=== PATIENT | female | born 1965 | race Caucasian/White ===

== ENCOUNTER → 2016-10-25 | Outpatient (CLI) | payer BC ==
[~2016-10-25] MED LIST: CALC-51 PO; DICY10CA55 PO; VITAMIN B12 PO; VITAMIN D3 PO
--- NOTE | 2016-10-25 14:05 | DIAGNOSTIC IMAGING REPORT ---
ABDOMEN AND PELVIS CT WITH IV AND ORAL CONTRAST CT DOSE: 805.97 mGycm HISTORY: Pain. Nausea. ABDOMINAL PAIN, BLOATING , CRAMPING TECHNIQUE: Multiaxial CT images of the abdomen and pelvis were performed following the use of intravenous and oral contrast. COMPARISON STUDY: 02/23/2013 FINDINGS: Minimal dependent basilar atelectatic change. Liver enhances uniformly. Spleen pancreas are unremarkable. Kidneys negative for mass or hydronephrosis. Bowel pattern is nonobstructive. Bladder is midline. There is no free fluid within the pelvic cul-de-sac. The appendix is normal. There are several very small reactive mesenteric nodes. IMPRESSION: No acute process. Electronically signed by: Jose Romero M.D. 10/25/2016 2:04 PM Dictated Date/Time: 10/25/2016 1:58 PM
== END | disposition home or self-care (01) ==
LOC: C.CTS 11:43
PROVIDERS: ATTEND Physician Assistant Medical
DX: K58.9 Irritable bowel syndrome, unspecified (principal); R14.0 Abdominal distension (gaseous); R10.9 Unspecified abdominal pain

== ENCOUNTER → 2017-02-11 | Outpatient (CLI) | payer BC ==
--- NOTE | 2017-02-11 17:59 | DIAGNOSTIC IMAGING REPORT ---
KUB HISTORY: Nephrolithiasis. COMPARISON: Abdomen and pelvis CT 10/25/2016. KUB 09/06/2015. FINDINGS: The bowel gas pattern is unremarkable. There are no dilated loops of small bowel to suggest an obstruction. No renal calculi. No ureteral calculi. Calcifications in the deep pelvis likely represent phleboliths. These remain stable. No pneumoperitoneum or pneumatosis. IMPRESSION: No renal or ureteral stones. Electronically signed by: Patricio Naik M.D. 02/11/2017 5:58 PM Dictated Date/Time: 02/11/2017 5:56 PM
== END | disposition home or self-care (01) ==
LOC: C.RAD 17:24
PROVIDERS: ATTEND Urology
DX: N20.1 Calculus of ureter (principal); Z87.442 Personal history of urinary calculi

== ENCOUNTER 2023-04-13 19:57 | Observation (INO) ==
[2023-04-13] MEDS ORDERED: oxyCODONE HCL IR 5 MG TAB (IMMEDIATE RELEASE) PO STA (20:08)
--- NOTE | 2023-04-13 20:08 | Emergency Department Note ---
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 The patient reports she was holding items in her hands and was unable to catch herself when she fell. She states the entirety of her weight landed on her left knee. She states she is unable to bear weight at this time, due to the pain. She denies any numbness and tingling in her lower extremity. She denies any pain in her hip, or in her ankle. She denies any pain in her wrists, she states she did not hit her head, she did not have loss of consciousness, and is not on anticoagulants. Home Medications Medication Instructions Recorded Confirmed Type biotin 10 mg tablet PO 01/17/19 01/17/23 History calcium carbonate-vitamin D3 PO DAILY 01/17/19 01/17/23 History cholecalciferol (vitamin D3) 50 PO 01/17/19 01/17/23 History mcg (2,000 unit) tablet cyanocobalamin (vitamin B-12) 500 PO 01/17/19 01/17/23 History mcg tablet ferrous gluconate 240 mg (27 mg PO 01/17/19 01/17/23 History iron) tablet vitamin A 2,400 mcg capsule PO 01/17/19 01/17/23 History vitamin B complex 1 cap PO DAILY 01/17/19 01/17/23 History hyoscyamine sulfate 0.125 mg tablet 0.125 mg PO Q4H PRN #30 tabs 01/29/19 01/17/23 History multivitamin (Multiple Vitamins 1 tab PO DAILY 08/31/20 01/17/23 History tablet) meloxicam 15 mg tablet 15 mg PO PRN 01/17/23 01/17/23 History Allergies Allergy/AdvReac Type Severity Reaction Status Date / Time oxycodone Allergy Mild Rash Verified 04/13/23 22:16 Penicillins Allergy Mild RASH Verified 01/17/23 13:45 egg Allergy Unknown Unknown Verified 04/13/23 22:16 grass pollen Allergy Unknown Verified 04/13/23 22:16 house dust Allergy Unknown Verified 04/13/23 22:16 gluten AdvReac Severe PT REPORTS Verified 01/17/23 13:45 NOW lactose AdvReac Severe PT REPORTS Verified 01/17/23 13:45 NOW Past Med/Surg History Medical History 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 Vaginismus Hypokalemia Varicella Post-menopausal bleeding Endometriosis Surgical History S/P colonoscopy 03/2020 paula Al, 3 yrs H/O lithotripsy S/P tonsillectomy History of hysteroscopy [id number] Endometrium S/P dilatation and curettage 08/28/2015 History of endometrial biopsy History of appendectomy Family History Uncle Hx of CABG Paternal Coronary heart disease Paternal Brother Diabetes Mother Hypertension Colorectal cancer Mother Malignant neoplasm of gastrointestinal tract Other Hyperlipidemia Migraine Prostate cancer Denies family history of Ovarian cancer Breast cancer Social History Smoking Status: Never smoker Do You Dip or Chew Tobacco: No; Hx Alcohol Use: No Preferred Language: Luxembourgish marital status: Current Living Situation: Spouse current occupational status: employed Feels Safe at Home: Yes Physical Exam Vital Signs Vital Signs - 24 hr 04/13/23 20:01 04/13/23 20:04 04/13/23 22:55 Temperature 37 C Temperature Source Oral Pulse Rate 88 Pulse Rate [Right Finger] 70 Respiratory Rate 16 16 Respiratory Effort / Characteristics Non-Labored Spontaneous Respiratory Depth Normal Blood Pressure [Right Arm] 156/73 H 168/59 H Blood Pressure Mean [Right Arm] 100 95 Blood Pressure Position [Right Arm] Pulse Oximetry 95 94 Oxygen Delivery Method Room Air Sepsis Recent Fever Within 48 Hours No Sepsis New/Unexplained Change in Mental Status N/A Sepsis Action Taken by Nursing No Action Required 04/13/23 23:28 Temperature Temperature Source Pulse Rate Pulse Rate [Right Finger] 82 Respiratory Rate 20 Respiratory Effort / Characteristics Non-Labored Respiratory Depth Normal Blood Pressure [Right Arm] 136/67 Blood Pressure Mean [Right Arm] 90 Blood Pressure Position [Right Arm] Lying Pulse Oximetry 97 Oxygen Delivery Method Room Air Sepsis Recent Fever Within 48 Hours Sepsis New/Unexplained Change in Mental Status Sepsis Action Taken by Nursing General: Awake, alert and oriented. No acute distress. Well developed, hydrated and nourished. Appears stated age. Skin: Skin in warm, dry and intact without rashes or lesions. Appropriate color for ethnicity. Nailbeds pink with no cyanosis or clubbing. Head: The head is normocephalic and atraumatic without tenderness, visible or palpable masses, depressions, or scarring. Hair is of normal texture and evenly distributed. Cardiac: The external chest is normal in appearance without lifts, heaves, or thrills. Heart rate and rhythm are normal. No murmurs, gallops, or rubs are auscultated. S1 and S2 are heard and are of normal intensity. Respiratory: The chest wall is symmetric and without deformity. No signs of trauma. Chest wall is non-tender. No signs of respiratory distress. Lung sounds are clear in all lobes bilaterally without rales, rhonchi, or wheezes. Spine: Neck and back are without deformity, external skin changes, or signs of trauma. Curvature of the cervical, thoracic, and lumbar spine are within normal limits. Bony features of the shoulders and hips are of equal height bilaterally. No tenderness noted on palpation of the spinous processes. Spinous processes are midline. Cervical, thoracic, and lumbar paraspinal muscles are not tender and are without spasm. No discomfort is noted with flexion, extension, and [id number] rotation of the cervical spine, full range of motion is noted. Full range of motion including flexion, extension, and [id number] rotation of the thoracic and lumbar spine are noted and without discomfort. Straight leg raise test is negative bilaterally. Sensation to the upper and lower extremities is normal bilaterally. No clonus is noted. Senior [employer] Software [employer] strength is normal bilaterally. Dorsi/plantar flexion is normal bilaterally. Extremities: Left knee edema, ecchymosis, tenderness to palpation distal to the patella, pain to the posterior medial knee with palpation. Limited range of motion, patient states pain is not tolerable with flexion or extension. Tendon function is normal. Capillary refill is less than 3 seconds in all extremities. Pulses palpable. Neurological: The patient is awake, alert and oriented to person, place, and time with normal speech. Motor function is normal with muscle strength 5/5 bilaterally to upper and lower extremities. Sensation is intact bilaterally. Reflexes 2+ bilaterally. Cranial nerves are intact. Cerebellar function is intact. Memory is normal and thought process is intact. Psychiatric: Appropriate mood and affect. Good judgement and insight. No visual or auditory hallucinations. No suicidal or homicidal ideation. Course Reevaluation(s) Reevaluation #1: The patient was reevaluated after her ambulatory trial with an Jordon wrap and a walker. The patient reports her pain is a 7 out of 10 still after her oxycodone while laying, and a 9 out of 10 while ambulating. Time: 21:31 Reevaluation #2: The patient was reevaluated based on the nurses assessment, she reports there is erythema to the bilateral lower extremities since taking the oral pain medication. The patient was reassessed by myself she has a diffuse erythematous flushing covering her lower extremities with some on her abdomen. Oral Benadryl was ordered. Time: 22:10 Administered Medications Discontinued Medications Diphenhydramine HCl (Diphenhydramine Capsule 25 Mg Cap) 25 mg PO NOW ONE Stop: 04/13/23 22:16 Last Admin: 04/13/23 22:18 Dose: 25 mg Documented By: NIKO Ketorolac Tromethamine (Ketorolac Tromethamine 15 Mg/Ml Vial) 15 mg IV NOW ONE Stop: 04/13/23 23:53 Last Admin: 04/14/23 00:06 Dose: 15 mg Documented By: DORIS Oxycodone HCl (Oxycodone Hcl Ir 5 Mg Tab (Immediate Release)) 5 mg PO NOW STA Stop: 04/13/23 20:09 Last Admin: 04/13/23 20:14 Dose: 5 mg Documented By: NIKO Medical Decision Making Differential Diagnosis Fracture, subluxation, dislocation, contusion, ligamentous injury, neurovascular, compartment syndrome, rhabdomyolysis, as well as other pathologies. Medical Records Attestation: I reviewed the patient's medical records. Home Medications Current Medication List: was personally reviewed by me Laboratory Data 04/14/23 00:08 04/14/23 00:08 Imaging Data Attestation: I personally reviewed and interpreted this imaging study as follows: My Impression: Initial x-ray interpretation by myself shows no acute fracture. Radiologist's Impression: Knee X-Ray 04/13/23 20:08 LEFT KNEE 3 VIEWS CLINICAL HISTORY: Fall with left knee injury. FINDINGS: AP, crosstable lateral, and sunrise views of the left knee are compared to study dated 04/10/2023. The skeletal structures are well mineralized. No displaced fracture is identified. There is a joint effusion with evidence of lipohemarthrosis. This is suspicious for occult fracture. There is minimal degenerative joint space narrowing. Patellar enthesophytes are observed. The overlying soft tissues are normal as imaged. IMPRESSION: 1. No fracture is seen. 2. There is a joint effusion with lipohemarthrosis. This is suspicious for occult fracture. Consider a CT scan of the knee for further assessment. Electronically signed by: Darrell Haynes M.D. 04/13/2023 11:[address] 04/13/23 21:22 Exam(s): CT LEFT KNEE Without Contrast EXAM: CT Left Lower Extremity Without Intravenous Contrast, Knee CLINICAL HISTORY: Reason for exam: fall. TECHNIQUE: Axial computed tomography images of the left knee without intravenous contrast. Automated exposure control was utilized for the study. A dose lowering technique was utilized adhering to the principles of ALARA. COMPARISON: No relevant prior studies available. FINDINGS: Bones/joints: Depressed fracture through the medial tibial plateau with extension into the tibial eminence and lateral tibial plateau. No dislocation. Soft tissues: Moderate size knee joint effusion with anterior knee soft tissue edema. IMPRESSION: 1. Depressed fracture through the medial tibial plateau with extension into the tibial eminence and lateral tibial plateau. 2. Moderate size knee joint effusion with anterior knee soft tissue edema. Electronically signed by: Lisa Ugarte MD 04/13/23 23:02 PM Blood Pressure Blood Pressure Findings: Elevated blood pressure Blood Pressure Disposition: elevated BP felt to be situational MDM Narrative The patient is a 57-year-old female who arrives to the emergency department for the above-stated complaint. Upon assessment the patient has severe tenderness to palpation distal to the patella, with ecchymosis and edema noted. The patient reports she is unable to tolerate weightbearing at all at this time. Patient was provided a p.o. 5 mg oxycodone for pain. X-ray imaging was ordered for rule out of acute injury, initial read by myself showed no acute fracture. The patient did not have any pain in her proximal or distal limb. Therefore no further imaging was indicated. An Jordon wrap was applied to the left knee and a walker to assist the patient with ambulation, she was unable to tolerate ambulation at that time. Based on the patient's severity of pain, as well as her inability to ambulate a CT was warranted to rule out an occult fracture. CT imaging showed a depressed medial tibial plateau fracture with extension into the tibial eminence and lateral tibial plateau. As well as a moderate size knee joint effusion. Dr. Parker was consulted from orthopedics. After review of the patient's chart Dr. Parker indicated the patient will need an Jordon wrap underneath a knee immobilizer. She will require the use of a walker and is not allowed to bear weight on the left leg at all. An attempt was made to assist the patient with ambulation by nursing staff, the attempt was unsuccessful. The patient had severe pain, and was not able to comfortably keep her left limb off the ground. The patient reports she lives in a split-level house, therefore she has to advance up or down stairs to enter her home. She is concerned she will not be able to navigate. At this time I feel admission is warranted for this patient due to the depressed tibial plateau fracture as well as the ambulatory dysfunction. Dr. Parker stated the patient will need DVT prophylaxis of Lovenox or heparin sub-Q for admission. Lovenox was ordered at 40mg twice daily after speaking with the pharmacist regarding the protocol. As well as an IV, CBC, CMP, and EKG for admission. The patient reported she was in significant pain, I placed an order for Toradol IV. I contacted the home health care case manager who contacted the [facility] admitting providers. I spoke with Dr. Jones, from [facility] admitting, who will accept the patient. Impression & Plan Fracture of tibial plateau, closed Discharge Plan Visit Data Chief Complaint: Knee Injury/Pain Stated Complaint: L KNEE PAIN, FALL @1900 ED Provider: Jeff Blanc ED Midlevel Provider: Corina Man Discharge Problem: Fracture of tibial plateau, closed Forms Stand Alone Forms: My [facility] Prescriptions Prescriptions: No Action cholecalciferol (vitamin D3) 2,000 unit tablet PO biotin 10 mg tablet PO calcium carbonate-vitamin D3 PO DAILY ferrous gluconate 240 mg (27 mg iron) tablet PO cyanocobalamin (vitamin B-12) 500 mcg tablet PO vitamin A 8,000 unit capsule PO vitamin B complex capsule 1 cap PO DAILY hyoscyamine sulfate 0.125 mg tablet 0.125 mg PO Q4H PRNQty: 30 multivitamin [Multiple Vitamins] Tablet 1 tab PO DAILY meloxicam 15 mg tablet 15 mg PO PRN Referrals Referrals: Catie Mccloud MD [Primary Care Provider] - Discharge Problem: Fracture of tibial plateau, closed Qualifiers: Encounter type: initial encounter Laterality: left Qualified Code(s): S82.142A - Displaced bicondylar fracture of left tibia, initial encounter for closed fracture
[2023-04-13] MEDS ORDERED: diphenhydrAMINE Capsule 25 MG CAP PO ONE (22:15)
--- NOTE | 2023-04-13 23:03 | CT Scan Report ---
Exam(s): CT LEFT KNEE Without Contrast EXAM: CT Left Lower Extremity Without Intravenous Contrast, Knee CLINICAL HISTORY: Reason for exam: fall. TECHNIQUE: Axial computed tomography images of the left knee without intravenous contrast. Automated exposure control was utilized for the study. A dose lowering technique was utilized adhering to the principles of ALARA. COMPARISON: No relevant prior studies available. FINDINGS: Bones/joints: Depressed fracture through the medial tibial plateau with extension into the tibial eminence and lateral tibial plateau. No dislocation. Soft tissues: Moderate size knee joint effusion with anterior knee soft tissue edema. IMPRESSION: 1. Depressed fracture through the medial tibial plateau with extension into the tibial eminence and lateral tibial plateau. 2. Moderate size knee joint effusion with anterior knee soft tissue edema. Electronically signed by: Lisa Ugarte MD 04/13/23 23:02 PM
--- NOTE | 2023-04-13 23:06 | XRay Report ---
LEFT KNEE 3 VIEWS CLINICAL HISTORY: Fall with left knee injury. FINDINGS: AP, crosstable lateral, and sunrise views of the left knee are compared to study dated 03/28. The skeletal structures are well mineralized. No displaced fracture is identified. There is a joint effusion with evidence of lipohemarthrosis. This is suspicious for occult fracture. There is m inimal degenerative joint space narrowing. Patellar enthesophytes are observed. The overlying soft ti ssues are normal as imaged. IMPRESSION: 1. No fracture is seen. 2. There is a joint effusion with lipohemarthrosis. This is suspicious for occult fracture. Consider a CT scan of the knee for further assessment. Electronically signed by: Darrell Haynes M.D. 04/13/2023 11:04 PM
--- NOTE | 2023-04-13 23:44 | Emergency Department Note ---
ED Visit Note I have personally evaluated this patient examined her and reviewed the pertinent labs and data. I have discussed the case with the nurse practitioner and agree with the plan. Please refer to the RN INFORMATICS note. This patient suffered mechanical fall injuring her left knee. She was found to have a hemarthrosis. We did a CAT scan and there is a depressed tibial plateau fracture. On my exam , the patient appears comfortable and she has on a knee immobilizer. In the foot, she has normal pulses and has intact motor and sensation distally. She tells me that she did not pass out she did not hit her head she is on no blood thinners. She has no chest pain , shortness breath, or abdominal pain or trauma , or pain anywhere else. We did try an ambulatory trial with a walker after talking to Dr. Brownlee and she could not adequately do this and was not safe to go home. We will consult the [facility] hospitalist team to see her for admission and orthopedic consultation Left knee x-ray. Upon my independent interpretation. I do not see any fracture or dislocation. There is a joint effusion/hemarthrosis .
[2023-04-13] MEDS ORDERED: ENOXAPARIN 0.5 MG/KG SQ SCH (23:45)
[2023-04-13] MEDS ORDERED: KETOROLAC TROMETHAMINE 15 MG/ML VIAL IV ONE (23:52)
[2023-04-14 00:34] LABS: Basophils # (auto) 0.04 K/uL (0.00-0.20); Basophils % (auto) 0.4 %; Eosinophils # (auto) 0.11 K/uL (0.00-0.50); Eosinophils % (auto) 1.1 %; Hematocrit (blood only) 37.1 % (37.0-47.0); Hemoglobin 12.1 g/dl (12.0-16.0); Immature Granulocytes # (auto) 0.04 K/uL (0.01-0.20); Immature Granulocytes % (auto) 0.4 %; Lymphocytes % (auto) 26.8 %; Mean Corpuscular Hemoglobin 30.4 pg (25.0-34.0); Mean Corpuscular Hgb Conc 32.6 g/dL (32.0-36.0); Mean Corpuscular Volume 93.2 fL (80.0-100.0); Monocytes # (auto) 0.67 K/uL (0.11-0.59); Monocytes % (auto) 6.7 %; Neutrophils % (auto) 64.6 %; Platelet Count 338 K/uL (130-400); RDW Coefficient of Variation 12.4 % (11.5-14.5); RDW Standard Deviation 42.6 fL (36.4-46.3); Red Blood Count 3.98 M/uL (4.20-5.40); White Blood Count 10.06 K/ul (4.8-10.8)
[2023-04-14 00:46] LABS: Albumin Globulin Ratio 1.4 (0.9-2); Albumin Level 4.2 gm/dl (3.4-5.0); BUN Creatinine Ratio 22.4 (10-20); Bilirubin,Total 0.4 mg/dl (0.2-1.0); Calcium 9.7 mg/dl (8.6-10.3); Creatinine Clr Calc Pharmacy 120.4 ml/min; Est GFR (African American) 112.3 ml/min; Est GFR (Non-African American) 96.9 ml/min; Globulin 2.9 gm/dl (2.5-4.0); Potassium 4.1 mmol/L (3.5-5.1); Total Protein 7.1 gm/dl (6.0-8.3)
[2023-04-14] MEDS ORDERED: oxyCODONE HCL IR 5 MG TAB (IMMEDIATE RELEASE) PO PRN (00:50)
[2023-04-14] MEDS: ENOXAPARIN INJ 40 MG/0.4 ML SYR SQ SCH ×2 (00:59→07:56)
[2023-04-14] MEDS ORDERED: D5W AND 1/2NSS 1,000 ML IV SCH (01:00)
--- NOTE | 2023-04-14 01:32 | History & Physical Report ---
Date of Service April 14, 2023 Assessment & Plan (1) Fracture of tibial plateau, closed: Plan: Orthopedics consulted As needed analgesics Immobilization for now. DVT prophylaxis again dosed by pharmacy per the ER provider (2) Obesity (BMI 30-39.9): Plan: Chronic/stable (3) Positive DANYEL (antinuclear antibody): Plan: Should continue to follow with outpatient provider Plan As described above. Please refer to orders for further planning. Await further input from orthopedics pending their evaluation consider OT and PT consultations. And social service consult. The patient does live in a 3 story home History of Present Illness Chief Complaint: Mechanical fall right knee pain Primary Care Provider: Catie Mccloud MD Pleasant 57-year-old female tripped and fell to the ground injuring her right knee. Had difficulty ambulating and came to the ER for further evaluation and treatment. Plain film x-rays were unremarkable for fracture however did show joint effusion. Therefore CT was obtained which showed a tibial plateau fracture with joint effusion. patient was unable to bear significant weight was an unsafe discharge orthopedics was consulted. Per the ER [facility] orthopedics recommended chemical DVT prophylaxis the AGUILAR discussed with pharmacy they are recommending the 40 mg of Lovenox twice daily given the patient's weight and creatinine clearance. Will keep the patient n.p.o. after midnight in case she needs to go to the OR which we are doubtful of. Allergies Allergy/AdvReac Type Severity Reaction Status Date / Time oxycodone Allergy Mild Rash Verified 04/13/23 22:16 Penicillins Allergy Mild RASH Verified 01/17/23 13:45 egg Allergy Unknown Unknown Verified 04/13/23 22:16 grass pollen Allergy Unknown Verified 04/13/23 22:16 house dust Allergy Unknown Verified 04/13/23 22:16 gluten AdvReac Severe PT REPORTS Verified 01/17/23 13:45 NOW lactose AdvReac Severe PT REPORTS Verified 01/17/23 13:45 NOW Home Medications Medication Instructions Recorded Confirmed Type biotin 10 mg tablet PO 01/17/19 01/17/23 History calcium carbonate-vitamin D3 PO DAILY 01/17/19 01/17/23 History cholecalciferol (vitamin D3) 50 PO 01/17/19 01/17/23 History mcg (2,000 unit) tablet cyanocobalamin (vitamin B-12) 500 PO 01/17/19 01/17/23 History mcg tablet ferrous gluconate 240 mg (27 mg PO 01/17/19 01/17/23 History iron) tablet vitamin A 2,400 mcg capsule PO 01/17/19 01/17/23 History vitamin B complex 1 cap PO DAILY 01/17/19 01/17/23 History hyoscyamine sulfate 0.125 mg tablet 0.125 mg PO Q4H PRN #30 tabs 01/29/19 01/17/23 History multivitamin (Multiple Vitamins 1 tab PO DAILY 08/31/20 01/17/23 History tablet) meloxicam 15 mg tablet 15 mg PO PRN 01/17/23 01/17/23 History Past Med/Surg History Medical History (Updated 04/14/23 @ 01:30 by Leonardo Jones, PhD, DO) Obesity (BMI 30-39.9) 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 Vaginismus Hypokalemia Varicella Post-menopausal bleeding Endometriosis Surgical History S/P colonoscopy 03/2020 paula Al, 3 yrs H/O lithotripsy S/P tonsillectomy History of hysteroscopy [id number] Endometrium S/P dilatation and curettage 08/28/2015 History of endometrial biopsy History of appendectomy Family History Uncle Hx of CABG Paternal Coronary heart disease Paternal Brother Diabetes Mother Hypertension Colorectal cancer Mother Malignant neoplasm of gastrointestinal tract Other Hyperlipidemia Migraine Prostate cancer Denies family history of Ovarian cancer Breast cancer Social History Smoking Status: Never smoker Do You Dip or Chew Tobacco: No; Hx Alcohol Use: No Preferred Language: Wolof marital status: Current Living Situation: Spouse current occupational status: employed Feels Safe at Home: Yes Review of Systems Review of Systems: A 10 point review of system was obtained and unless otherwise stated here or in history of present illness are negative and noncontributory to chief complaint. Physical Exam Physical Exam: In general: This is a pleasant 57-year-old female who is alert and oriented x 3 at the time of my exam she interacts appropriate pleasantly at the time my examination. She is in no acute distress but does have mild to moderate pain in her right knee per her report HEENT: Normocephalic atraumatic pupils are equal round and reactive to light bilaterally. No scleral icterus no conjunctival injection external auditory canals are patent septum is in the midline nose is without discharge oral mucosa is pink and moist without lesion. NECK: Supple no rigidity no lymphadenopathy no thyromegaly no carotid bruits no JVD no masses. HEART: Regular rate and rhythm I do not appreciate any ectopy or rub. No murmur. LUNGS: Clear to auscultation bilaterally and anteriorly with no evidence of adventitious sounds/wheezes rales or rhonchi. ABDOMEN: Soft nontender, no rebound, no peritoneal signs, positive bowel sounds, no appreciable organomegaly. EXTREMITIES: Neurovascularly intact bilaterally. Right lower extremity is currently dressed at the level of the knee with soft immobilizer in place. NEUROLOGICAL: Cranial nerves II through XII are grossly intact with no focal deficit elicited upon examination. No tremor. Results & Data Results & Data Vital Signs (Past 12 Hours) Vital Signs Temp Pulse Pulse Resp BP Pulse Ox O2 Del Method 04/13/23 23:28 82 20 136/67 97 Room Air 04/13/23 22:55 70 16 168/59 H 94 04/13/23 20:04 156/73 H 04/13/23 20:01 37 C 88 16 95 Room Air Code Status & VTE Plan Code Status Full code I discussed personally with patient PG Care Time/CCT Total # of Minutes Spent Total Time Spent with Patient: Total time spent is greater than 50% in coordination of care (as documented) at patient's floor/unit and/or counseling patient: Coding Level of Care Code 08298 INT INP/OBS CARE 2/55MIN Diagnoses Fracture of tibial plateau, closed S82.142A Encounter type: initial encounter Laterality: left Obesity (BMI 30-39.9) E66.9 Positive DANYEL (antinuclear antibody) R76.8 (1) Fracture of tibial plateau, closed Encounter type: initial encounter Laterality: left Qualified Code(s): S82.142A - Displaced bicondylar fracture of left tibia, initial encounter for closed fracture
[2023-04-14] MEDS: ACETAMINOPHEN 325 MG TAB PO PRN ×5 (03:34→22:31)
[2023-04-14 07:26] LABS: Albumin Globulin Ratio 1.5 (0.9-2); Albumin Level 3.7 gm/dl (3.4-5.0); Basophils # (auto) 0.02 K/uL (0.00-0.20); Basophils % (auto) 0.3 %; Bilirubin,Total 0.5 mg/dl (0.2-1.0); Creatinine Clr Calc Pharmacy 112.1 ml/min; Eosinophils # (auto) 0.11 K/uL (0.00-0.50); Eosinophils % (auto) 1.4 %; Est GFR (Non-African American) 92.3 ml/min; Globulin 2.4 gm/dl (2.5-4.0); Hematocrit (blood only) 32.6 % (37.0-47.0); Hemoglobin 10.9 g/dl (12.0-16.0); Immature Granulocytes # (auto) 0.02 K/uL (0.01-0.20); Immature Granulocytes % (auto) 0.3 %; Lymphocytes # (auto) 2.94 K/uL (1.20-3.40); Lymphocytes % (auto) 37.4 %; Magnesium 2.1 mg/dl (1.7-2.4); Mean Corpuscular Hemoglobin 30.8 pg (25.0-34.0); Mean Corpuscular Hgb Conc 33.4 g/dL (32.0-36.0); Mean Corpuscular Volume 92.1 fL (80.0-100.0); Mean Platelet Volume 11.2 fL (9.4-12.4); Monocytes # (auto) 0.68 K/uL (0.11-0.59); Monocytes % (auto) 8.7 %; Neutrophils # (auto) 4.09 K/uL (1.40-6.50); Neutrophils % (auto) 51.9 %; Platelet Count 292 K/uL (130-400); Potassium 4.2 mmol/L (3.5-5.1); RDW Coefficient of Variation 12.6 % (11.5-14.5); RDW Standard Deviation 42.5 fL (36.4-46.3); Red Blood Count 3.54 M/uL (4.20-5.40); Total Protein 6.1 gm/dl (6.0-8.3); White Blood Count 7.86 K/ul (4.8-10.8)
[2023-04-14 07:35] LABS: INR 0.9 (0.9-1.1); Prothrombin Time 10.4 Seconds (9.0-12.0)
--- NOTE | 2023-04-14 09:54 | Orthopedic Consultation ---
Date of Consultation April 14, 2023 Assessment & Plan (1) Fracture of tibial plateau, closed: Things are discussed. Imaging reviewed. Her knee is stable. Her x-rays are negative. That is with the exception of the effusion. The CT scan shows a nonarticular fracture involving the posterior portion of the intercondylar eminence consistent with a nondisplaced injury involving the tibial attachment of the posterior cruciate ligament. IEA PCL sprain. Intact clinically. Spoke with hospitalist. Recommend nonweightbearing just in case there are other injuries not clearly identified on the CT scan. Knee immobilizer with the leg held in extension. Full me next week in the office. DVT prophylaxis with aspirin or something like Eliquis. PT and OT. I do not think that surgery is necessary at this time. (2) Injury of posterior cruciate ligament of right knee: History of Present Illness Attending Physician: Nora Gould MD History of Present Illness Lizette is 57 years old.She fell last evening carrying some things. Fell on a flexed knee. There is no prior history of left knee injuries. She complained of left knee pain was brought to the ER where she was diagnosed with a fracture and consultation was obtained.She was able to put some weight on the knee but it hurt. She also noted swelling. There is not been any tingling or numbness. She has been seen for plantar fasciitis/foot problems. Allergies Allergy/AdvReac Type Severity Reaction Status Date / Time oxycodone Allergy Mild Rash Verified 04/14/23 09:04 Penicillins Allergy Mild RASH Verified 04/14/23 09:04 egg Allergy Unknown Unknown Verified 04/14/23 09:04 grass pollen Allergy Unknown Verified 04/14/23 09:04 house dust Allergy Unknown Verified 04/14/23 09:04 gluten AdvReac Severe PT REPORTS Verified 04/14/23 09:04 NOW lactose AdvReac Severe PT REPORTS Verified 04/14/23 09:04 NOW Home Medications Medication Instructions Recorded Confirmed Type biotin 10 mg tablet 10 mg PO DAILY 01/17/19 04/14/23 History cholecalciferol (vitamin D3) 50 50 mcg PO DAILY 01/17/19 04/14/23 History mcg (2,000 unit) tablet cyanocobalamin (vitamin B-12) 500 500 mcg PO DAILY 01/17/19 04/14/23 History mcg tablet ferrous gluconate 240 mg (27 mg 240 mg PO DAILY 01/17/19 04/14/23 History iron) tablet vitamin A 2,400 mcg capsule 2,400 mcg PO DAILY 01/17/19 04/14/23 History vitamin B complex 1 cap PO DAILY 01/17/19 04/14/23 History multivitamin (Multiple Vitamins 1 tab PO DAILY 08/31/20 04/14/23 History tablet) calcium carbonate 600 mg-vitamin 1 tab PO DAILY 04/14/23 04/14/23 History D3 20 mcg (800 unit) chewable tablet (Caltrate 600 plus D) Patient History Medical History (Updated 04/14/23 @ 09:55 by Venancio Parker MD) Obesity (BMI 30-39.9) 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 Vaginismus Hypokalemia Varicella Post-menopausal bleeding Endometriosis Surgical History S/P colonoscopy 03/2020 Mikaela, paula, 3 yrs H/O lithotripsy S/P tonsillectomy History of hysteroscopy [id number] Endometrium S/P dilatation and curettage 08/28/2015 History of endometrial biopsy History of appendectomy Family History Uncle Hx of CABG Paternal Coronary heart disease Paternal Brother Diabetes Mother Hypertension Colorectal cancer Mother Malignant neoplasm of gastrointestinal tract Other Hyperlipidemia Migraine Prostate cancer Denies family history of Ovarian cancer Breast cancer Social History Smoking Status: Never smoker Second Hand Exposure: No; Do You Dip or Chew Tobacco: No; Hx Alcohol Use: No Hx Substance Use: No Preferred Language: Danish Communication Ability: Effective Cloth Desizing Range Tender Required: No Beliefs That Will Affect Care: None marital status: Current Living Situation: Spouse current occupational status: employed Other Information That Helps Us Care for You: No Feels Safe at Home: Yes Safety Concerns: Feels Safe At This Time Assistive Devices: Brace/Splint/Immobilizer Assistive Devices Comment: left knee immobilizer Review of Systems Review of Systems: Reviewed and noted. Lives at home with her . She is retired. Physical Exam Physical Exam: Pulses 1+. PT pulse is trace and positive Doppler. Sensation intact throughout the left foot and she has 5 out of 5 ankle and toe plantarflexion dorsiflexion inversion and eversion strength. She has good range of motion of the ankle with minor discomfort. Foot ankle leg thigh nontender. No pain with logrolling in the hip. She is able to do a straight leg raise. Knee motion is 0/10/60. The knee is stable to varus and valgus stress in full extension and 20 degrees flexion. Bethany is negative. PCL appears intact without significant posterior drawer laxity. There is a effusion in the left knee probably moderate. Mild tenderness laterally otherwise nontender. Skin intact. She is able to extend her knee against resistance. Results & Data Vital Signs (Past 12 Hours) Vital Signs Temp Pulse Resp BP Pulse Ox O2 Del Method 04/14/23 08:51 36.8 C 72 18 135/77 94 Room Air 04/14/23 03:18 36.8 C 84 18 126/77 96 Room Air 04/13/23 23:28 82 20 136/67 97 Room Air 04/13/23 22:55 70 16 168/59 H 94 Laboratory Results Laboratory Results WBC 7.86 K/ul (4.8-10.8) 04/14/23 06:19 RBC 3.54 M/uL (4.20-5.40) L 04/14/23 06:19 Hgb 10.9 g/dl (12.0-16.0) L 04/14/23 06:19 Hct 32.6 % (37.0-47.0) L 04/14/23 06:19 MCV 92.1 fL (80.0-100.0) 04/14/23 06:19 MCH 30.8 pg (25.0-34.0) 04/14/23 06:19 MCHC 33.4 g/dL (32.0-36.0) 04/14/23 06:19 RDW Std Deviation 42.5 fL (36.4-46.3) 04/14/23 06:19 RDW Coeff of [facility] 12.6 % (11.5-14.5) 04/14/23 06:19 Plt Count 292 K/uL (130-400) 04/14/23 06:19 MPV 11.2 fL (9.4-12.4) 04/14/23 06:19 Immature Gran % (Auto) 0.3 % 04/14/23 06:19 Neut % (Auto) 51.9 % 04/14/23 06:19 Lymph % (Auto) 37.4 % 04/14/23 06:19 [place] % (Auto) 8.7 % 04/14/23 06:19 Eos % (Auto) 1.4 % 04/14/23 06:19 Baso % (Auto) 0.3 % 04/14/23 06:19 Neut # (Auto) 4.09 K/uL (1.40-6.50) 04/14/23 06:19 Lymph # (Auto) 2.94 K/uL (1.20-3.40) 04/14/23 06:19 [place] # (Auto) 0.68 K/uL (0.11-0.59) H 04/14/23 06:19 Eos # (Auto) 0.11 K/uL (0.00-0.50) 04/14/23 06:19 Baso # (Auto) 0.02 K/uL (0.00-0.20) 04/14/23 06:19 Immature Gran # (Auto) 0.02 K/uL (0.01-0.20) 04/14/23 06:19 PT 10.4 Seconds (9.0-12.0) 04/14/23 06:19 INR 0.9 (0.9-1.1) 04/14/23 06:19 Sodium 140 mmol/L (136-145) 04/14/23 06:19 Potassium 4.2 mmol/L (3.5-5.1) 04/14/23 06:19 Chloride 107 mmol/L (98-107) 04/14/23 06:19 Carbon Dioxide 28 mmol/L (21-32) 04/14/23 06:19 Anion Gap 5 (3-11) 04/14/23 06:19 BUN 18 mg/dl (6-23) 04/14/23 06:19 Creatinine 0.72 mg/dl (0.6-1.2) 04/14/23 06:19 Est Cr Clr Drug Dosing 112.1 ml/min 04/14/23 06:19 Est GFR ( Amer) 107.0 ml/min 04/14/23 06:19 Est GFR (Non-Af Amer) 92.3 ml/min 04/14/23 06:19 BUN/Creatinine Ratio 25.0 (10-20) H 04/14/23 06:19 Glucose 122 mg/dl (70-99(Fasting)) H 04/14/23 06:19 Calcium 9.0 mg/dl (8.6-10.3) 04/14/23 06:19 Magnesium 2.1 mg/dl (1.7-2.4) 04/14/23 06:19 Total Bilirubin 0.5 mg/dl (0.2-1.0) 04/14/23 06:19 AST 15 U/L (13-39) 04/14/23 06:19 ALT 17 U/L (7-52) 04/14/23 06:19 Alkaline Phosphatase 74 U/L (34-104) 04/14/23 06:19 Total Protein 6.1 gm/dl (6.0-8.3) 04/14/23 06:19 Albumin 3.7 gm/dl (3.4-5.0) 04/14/23 06:19 Globulin 2.4 gm/dl (2.5-4.0) L 04/14/23 06:19 Albumin/Globulin Ratio 1.5 (0.9-2) 04/14/23 06:19 Impressions Knee X-Ray 04/13/23 20:08 LEFT KNEE 3 VIEWS CLINICAL HISTORY: Fall with left knee injury. FINDINGS: AP, crosstable lateral, and sunrise views of the left knee are compared to study dated 04/10/2023. The skeletal structures are well mineralized. No displaced fracture is identified. There is a joint effusion with evidence of lipohemarthrosis. This is suspicious for occult fracture. There is minimal degenerative joint space narrowing. Patellar enthesophytes are observed. The overlying soft tissues are normal as imaged. IMPRESSION: 1. No fracture is seen. 2. There is a joint effusion with lipohemarthrosis. This is suspicious for occult fracture. Consider a CT scan of the knee for further assessment. Electronically signed by: Darrell Haynes M.D. 04/13/2023 11:[address] 04/13/23 21:22 Exam(s): CT LEFT KNEE Without Contrast EXAM: CT Left Lower Extremity Without Intravenous Contrast, Knee CLINICAL HISTORY: Reason for exam: fall. TECHNIQUE: Axial computed tomography images of the left knee without intravenous contrast. Automated exposure control was utilized for the study. A dose lowering technique was utilized adhering to the principles of ALARA. COMPARISON: No relevant prior studies available. FINDINGS: Bones/joints: Depressed fracture through the medial tibial plateau with extension into the tibial eminence and lateral tibial plateau. No dislocation. Soft tissues: Moderate size knee joint effusion with anterior knee soft tissue edema. IMPRESSION: 1. Depressed fracture through the medial tibial plateau with extension into the tibial eminence and lateral tibial plateau. 2. Moderate size knee joint effusion with anterior knee soft tissue edema. Electronically signed by: Lisa Ugarte MD 04/13/23 23:02 PM (1) Fracture of tibial plateau, closed Encounter type: initial encounter Laterality: left Qualified Code(s): S82.142A - Displaced bicondylar fracture of left tibia, initial encounter for closed fracture
[2023-04-14] MEDS ORDERED: POLYETHYLENE (MIRALAX) 17 GM PACK PO PRN (09:56)
[2023-04-14] MEDS: APIXABAN 2.5 MG TAB PO SCH ×2 (14:03→22:30)
--- NOTE | 2023-04-14 15:57 | XRay Report ---
XR ankle LT 2V CLINICAL HISTORY: ankle pain, s/p fall TECHNIQUE: 2 views of the left ankle were obtained. Comparison: None available at the time of this dictation. FINDINGS: No fractures are present. The joint spaces are well preserved. The ankle mortise is intact. Soft tiss ue swelling is seen about the ankle. IMPRESSION: Soft tissue swelling is seen without evidence of underlying bony abnormality. ACT 112: Negative or not required by law. Electronically signed by: Kin Ca M.D. 04/14/2023 3:56 PM
--- NOTE | 2023-04-14 16:15 | Hospitalist Progress Note ---
Date of Service April 14, 2023 Assessment & Plan (1) Fracture of tibial plateau, closed: Plan: - Knee xray: no fracture, joint effusion with lipohemarthrosis - Knee CT: Depressed fracture through the medial tibial plateau with extension into the tibial eminence and lateral tibial plateau. Moderate joint effusion. - Left Ankle xray: no fracture, soft tissue swelling present - Orthopedics consulted - No urgent surgical intervention needed. More likely a PCL sprain - Non-weight bearing until outpatient follow up - DVT prophylaxis - Eliquis 2.5 mg BID x14 days - Tylenol for pain - PT/OT --> recommending home PT (2) Obesity (BMI 30-39.9): Plan: Chronic/stable (3) Positive DANYEL (antinuclear antibody): Plan: Should continue to follow with outpatient provider Plan Medically stable for discharge, awaiting home health services to be arranged. Likely d/c tomorrow Admission and Anticipated Discharge Date Admission Date: April 14, 2023 Supervising Physician Co-Signing Physician Notes PA Supervision Note: I did not personally see or examine the patient today, but I verified all daniel points of CHLOÉ Zarco's assessment and plan with the following exceptions/additions: None Subjective Patient seen lying in bed, just seen by ortho and reports pain from the manipulation. Also reports pain in her left ankle. Discussed fall and very mechanical in nature. Otherwise feeling well, eager to try to get up to use the restroom. Has not had a bowel movement yet. Denies CP or SOB. Review of Systems Review of Systems: All systems reviewed & are unremarkable except as noted in Subjective Physical Exam Physical Exam: General: WN/WD, NAD, VS as above Resp: normal respiratory effort, lungs clear to auscultation CV: RRR, no murmur, Abd: normal bowel sounds, non tender, no hepatosplenomegaly Extremities: Left leg immobilizer in place, edema to left ankle Neuro: A&O x3, Results & Data Results & Data Vital Signs (Past 12 Hours) Vital Signs Temp Pulse Resp BP Pulse Ox O2 Del Method 04/14/23 15:33 36.9 C 72 18 138/75 93 Room Air 04/14/23 08:51 36.8 C 72 18 135/77 94 Room Air Laboratory Results CBC and chemistry reviewed Diagnostic Findings ankle xray reviewed PG Care Time/CCT Total # of Minutes Spent Total Time Spent with Patient: Total time spent is greater than 50% in coordination of care (as documented) at patient's floor/unit and/or counseling patient: Coding Level of Care Code None Diagnoses Fracture of tibial plateau, closed S82.142A Encounter type: initial encounter Laterality: left Obesity (BMI 30-39.9) E66.9 Positive DANYEL (antinuclear antibody) R76.8 (1) Fracture of tibial plateau, closed Encounter type: initial encounter Laterality: left Qualified Code(s): S82.142A - Displaced bicondylar fracture of left tibia, initial encounter for closed fracture
[2023-04-14] MEDS: SENNA 8.6 MG TAB PO PRN (23:55)
[2023-04-15] MEDS: APIXABAN 2.5 MG TAB PO SCH ×2 (08:22→22:28)
[2023-04-15] MEDS: ACETAMINOPHEN 325 MG TAB PO PRN ×3 (08:23→22:28)
--- NOTE | 2023-04-15 09:39 | Discharge Summary ---
Discharge Summary Date of Service April 15, 2023 Notes For Next Care Provider -On Eliquis for 14 days, last day 04/27/2023 -Nonweight bearing until follow up with ortho Medication Changes From Visit Eliquis for 14 days, last day 04/27/2023 Admission HPI Per Admitting Provider Pleasant 57-year-old female tripped and fell to the ground injuring her right knee. Had difficulty ambulating and came to the ER for further evaluation and treatment. Plain film x-rays were unremarkable for fracture however did show joint effusion. Therefore CT was obtained which showed a tibial plateau fracture with joint effusion. patient was unable to bear significant weight was an unsafe discharge orthopedics was consulted. Per the ER [facility] orthopedics recommended chemical DVT prophylaxis the AGUILAR discussed with pharmacy they are recommending the 40 mg of Lovenox twice daily given the patient's weight and creatinine clearance. Will keep the patient n.p.o. after midnight in case she needs to go to the OR which we are doubtful of. Principal Dx & Hospital Course #1 = Principal Diagnosis (1) Fracture of tibial plateau, closed: - Knee xray: no fracture, joint effusion with lipohemarthrosis - Knee CT: Depressed fracture through the medial tibial plateau with extension into the tibial eminence and lateral tibial plateau. Moderate joint effusion. - Left Ankle xray: no fracture, soft tissue swelling present - Orthopedics consulted - No urgent surgical intervention needed. More likely a PCL sprain - Non-weight bearing until outpatient follow up - DVT prophylaxis - Eliquis 2.5 mg BID x14 days, last day 04/27/2023 - Tylenol and ice for pain - Discharge with home PT (2) Obesity (BMI 30-39.9): Chronic/stable (3) Positive DANYEL (antinuclear antibody): Should continue to follow with outpatient provider Plan Discharge to home with home PT Discharge Exam General: WN/WD, NAD, VS as above Resp: normal respiratory effort, lungs clear to auscultation CV: RRR, no murmur, Extremities: Left leg immobilizer in place, edema to left ankle, bilateral pulses palpable Neuro: A&O x3, Updated Medication List Medication Instructions Recorded Confirmed Type biotin 10 mg tablet 10 mg PO DAILY 01/17/19 04/14/23 History cholecalciferol (vitamin D3) 50 50 mcg PO DAILY 01/17/19 04/14/23 History mcg (2,000 unit) tablet cyanocobalamin (vitamin B-12) 500 500 mcg PO DAILY 01/17/19 04/14/23 History mcg tablet ferrous gluconate 240 mg (27 mg 240 mg PO DAILY 01/17/19 04/14/23 History iron) tablet vitamin A 2,400 mcg capsule 2,400 mcg PO DAILY 01/17/19 04/14/23 History vitamin B complex 1 cap PO DAILY 01/17/19 04/14/23 History multivitamin (Multiple Vitamins 1 tab PO DAILY 08/31/20 04/14/23 History tablet) calcium carbonate 600 mg-vitamin 1 tab PO DAILY 04/14/23 04/14/23 History D3 20 mcg (800 unit) chewable tablet (Caltrate 600 plus D) acetaminophen 325 mg tablet 650 mg (2 x 325 mg) PO Q4H PRN 04/15/23 Rx Pain 30 days #30 tabs apixaban 2.5 mg tablet (Eliquis) 2.5 mg PO BID 13 days #26 tabs 04/15/23 Rx Hospital Stay Data Consultations 04/14/23 00:20 ED Decision to Admit Stat 04/14/23 00:55 Consult Orthopedic Surgery Stat Diagnostic Imagining Performed 04/13/23 21:22 CT knee LT wo con Stat Pending Results Patient Have Any Pending Studies at Discharge: No Discharge Instructions Given to Patient (Per Discharging Provider) Ms. Price, You were hospitalized after fall with possible tibial plateau fracture vs PCL sprain. For this reason, Orthopedics would like you stay in the knee immbolizer until they are able to reevaluate in the office. You can continue ice and tylenol for pain control. Because you will have limited motion, you are at higher risk for blood clots. For this, we started you an Eliquis, a blood thinner, twice a day for 14 days. This may be extended by orthopedics at your follow up appointment. Home PT has been arranged with [facility] and they will start services 04/17. You also should continue follow up with your PCP regarding your positive DANYEL blood work. If you have uncontrolled pain, or new symptoms contact your PCP, orthopedics or return to the ER. It was our pleasure taking care of you, Domitila Zarco PA-C Total Time Total Time Spent Total Time Spent (In Minutes): 35 minutes Coding Level of Care Code 12479 INP/OBS DISCH >30 MIN Diagnoses Fracture of tibial plateau, closed S82.142A Encounter type: initial encounter Laterality: left Obesity (BMI 30-39.9) E66.9 Positive DANYEL (antinuclear antibody) R76.8
--- NOTE | 2023-04-15 11:12 | Orthopedic Progress Note ---
Date of Service April 15, 2023 Assessment & Plan (1) Fracture of tibial plateau, closed: Plan: PT/OT Patient states that she has discussed in-home PT with case management and is set up with [facility] beginning on 04/17/2023 Nonweightbearing on left lower extremity with immobilizer and walker assistance Ice with easy wrap Pain controlled p.o. medications DVT prophylaxis with aspirin and Eliquis Follow-up with Dr. Parker at [facility] orthopedics on April 23 at noon. With questions contact our clinic at [phone] (2) Injury of posterior cruciate ligament of right knee: Admission and Anticipated Discharge Date Admission Date: April 14, 2023 Subjective This 57-year-old female is seen for follow-up of a left posterior tibial fracture with avulsion of her PCL after falling a few days ago. Patient states she is doing fairly well. She is wearing the immobilizer as instructed and has been nonweightbearing with the assistance of a walker. She states she has no other issues right now. She denies chest pain, shortness of breath, fever, chills, sweats, numbness or tingling in her left lower extremity, nausea, vomiting, difficulty voiding or moving her bowels. Review of Systems Review of Systems: All systems reviewed & are unremarkable except as noted in Subjective Physical Exam Physical Exam: Left lower extremity: Immobilizer is in place. Patient is able to actively perform a straight leg raise test and actively dorsi and plantarflex her foot without issue. Quad strength is 4+ out of 5. I did not remove the immobilizer to test her range of motion. She does experience tenderness to palpation over the soft part of the immobilizer to the site of the fracture of the PCL insertion of the posterior tibia. She is able to detect light sensation to touch over the pads of all digits. Her peripheral pulses are 2+. Her capillary fill is less than 2 seconds. She is neurovascularly intact in the left lower extremity. Results & Data Vital Signs (Past 12 Hours) Vital Signs Temp Pulse Resp BP Pulse Ox O2 Del Method 04/15/23 10:06 36.8 C 54 L 16 137/78 97 04/15/23 08:24 36.8 C 54 L 16 137/78 97 Room Air Diagnostic Findings Laboratory Results WBC 7.86 K/ul (4.8-10.8) 04/14/23 06:19 RBC 3.54 M/uL (4.20-5.40) L 04/14/23 06:19 Hgb 10.9 g/dl (12.0-16.0) L 04/14/23 06:19 Hct 32.6 % (37.0-47.0) L 04/14/23 06:19 MCV 92.1 fL (80.0-100.0) 04/14/23 06:19 MCH 30.8 pg (25.0-34.0) 04/14/23 06:19 MCHC 33.4 g/dL (32.0-36.0) 04/14/23 06:19 RDW Std Deviation 42.5 fL (36.4-46.3) 04/14/23 06:19 RDW Coeff of [facility] 12.6 % (11.5-14.5) 04/14/23 06:19 Plt Count 292 K/uL (130-400) 04/14/23 06:19 MPV 11.2 fL (9.4-12.4) 04/14/23 06:19 Immature Gran % (Auto) 0.3 % 04/14/23 06:19 Neut % (Auto) 51.9 % 04/14/23 06:19 Lymph % (Auto) 37.4 % 04/14/23 06:19 Hardin % (Auto) 8.7 % 04/14/23 06:19 Eos % (Auto) 1.4 % 04/14/23 06:19 Baso % (Auto) 0.3 % 04/14/23 06:19 Neut # (Auto) 4.09 K/uL (1.40-6.50) 04/14/23 06:19 Lymph # (Auto) 2.94 K/uL (1.20-3.40) 04/14/23 06:19 Hardin # (Auto) 0.68 K/uL (0.11-0.59) H 04/14/23 06:19 Eos # (Auto) 0.11 K/uL (0.00-0.50) 04/14/23 06:19 Baso # (Auto) 0.02 K/uL (0.00-0.20) 04/14/23 06:19 Immature Gran # (Auto) 0.02 K/uL (0.01-0.20) 04/14/23 06:19 PT 10.4 Seconds (9.0-12.0) 04/14/23 06:19 INR 0.9 (0.9-1.1) 04/14/23 06:19 Sodium 140 mmol/L (136-145) 04/14/23 06:19 Potassium 4.2 mmol/L (3.5-5.1) 04/14/23 06:19 Chloride 107 mmol/L (98-107) 04/14/23 06:19 Carbon Dioxide 28 mmol/L (21-32) 04/14/23 06:19 Anion Gap 5 (3-11) 04/14/23 06:19 BUN 18 mg/dl (6-23) 04/14/23 06:19 Creatinine 0.72 mg/dl (0.6-1.2) 04/14/23 06:19 Est Cr Clr Drug Dosing 112.1 ml/min 04/14/23 06:19 Est GFR ( Amer) 107.0 ml/min 04/14/23 06:19 Est GFR (Non-Af Amer) 92.3 ml/min 04/14/23 06:19 BUN/Creatinine Ratio 25.0 (10-20) H 04/14/23 06:19 Glucose 122 mg/dl (70-99(Fasting)) H 04/14/23 06:19 Calcium 9.0 mg/dl (8.6-10.3) 04/14/23 06:19 Magnesium 2.1 mg/dl (1.7-2.4) 04/14/23 06:19 Total Bilirubin 0.5 mg/dl (0.2-1.0) 04/14/23 06:19 AST 15 U/L (13-39) 04/14/23 06:19 ALT 17 U/L (7-52) 04/14/23 06:19 Alkaline Phosphatase 74 U/L (34-104) 04/14/23 06:19 Total Protein 6.1 gm/dl (6.0-8.3) 04/14/23 06:19 Albumin 3.7 gm/dl (3.4-5.0) 04/14/23 06:19 Globulin 2.4 gm/dl (2.5-4.0) L 04/14/23 06:19 Albumin/Globulin Ratio 1.5 (0.9-2) 04/14/23 06:19 25-OH Vitamin D Total 20.4 ng/ml (30-100) L 04/14/23 10:10 Impressions Knee X-Ray 04/13/23 20:08 LEFT KNEE 3 VIEWS CLINICAL HISTORY: Fall with left knee injury. FINDINGS: AP, crosstable lateral, and sunrise views of the left knee are compared to study dated 04/10/2023. The skeletal structures are well mineralized. No displaced fracture is identified. There is a joint effusion with evidence of lipohemarthrosis. This is suspicious for occult fracture. There is minimal degenerative joint space narrowing. Patellar enthesophytes are observed. The overlying soft tissues are normal as imaged. IMPRESSION: 1. No fracture is seen. 2. There is a joint effusion with lipohemarthrosis. This is suspicious for occult fracture. Consider a CT scan of the knee for further assessment. Electronically signed by: Darrell Haynes M.D. 04/13/2023 11:[address] 04/13/23 21:22 Exam(s): CT LEFT KNEE Without Contrast EXAM: CT Left Lower Extremity Without Intravenous Contrast, Knee CLINICAL HISTORY: Reason for exam: fall. TECHNIQUE: Axial computed tomography images of the left knee without intravenous contrast. Automated exposure control was utilized for the study. A dose lowering technique was utilized adhering to the principles of ALARA. COMPARISON: No relevant prior studies available. FINDINGS: Bones/joints: Depressed fracture through the medial tibial plateau with extension into the tibial eminence and lateral tibial plateau. No dislocation. Soft tissues: Moderate size knee joint effusion with anterior knee soft tissue edema. IMPRESSION: 1. Depressed fracture through the medial tibial plateau with extension into the tibial eminence and lateral tibial plateau. 2. Moderate size knee joint effusion with anterior knee soft tissue edema. Electronically signed by: Lisa Ugarte MD 04/13/23 23:02 PM Ankle X-Ray 04/14/23 15:27 XR ankle LT 2V CLINICAL HISTORY: ankle pain, s/p fall TECHNIQUE: 2 views of the left ankle were obtained. Comparison: None available at the time of this dictation. FINDINGS: No fractures are present. The joint spaces are well preserved. The ankle mortise is intact. Soft tissue swelling is seen about the ankle. IMPRESSION: Soft tissue swelling is seen without evidence of underlying bony abnormality. ACT 112: Negative or not required by law. Electronically signed by: Kin Ca M.D. 04/14/2023 3:56 PM (1) Fracture of tibial plateau, closed Encounter type: initial encounter Laterality: left Qualified Code(s): S82.142A - Displaced bicondylar fracture of left tibia, initial encounter for closed fracture
--- NOTE | 2023-04-15 15:06 | Hospitalist Progress Note ---
Date of Service April 15, 2023 Assessment & Plan (1) Fracture of tibial plateau, closed: Plan: - Knee xray: no fracture, joint effusion with lipohemarthrosis - Knee CT: Depressed fracture through the medial tibial plateau with extension into the tibial eminence and lateral tibial plateau. Moderate joint effusion. - Left Ankle xray: no fracture, soft tissue swelling present - Orthopedics consulted - No urgent surgical intervention needed. More likely a PCL sprain - Non-weight bearing until outpatient follow up - DVT prophylaxis - Eliquis 2.5 mg BID x14 days, last day 04/27/2023 - Tylenol and ice for pain - Awaiting rehab placement (2) Obesity (BMI 30-39.9): Plan: Chronic/stable (3) Positive DANYEL (antinuclear antibody): Plan: Should continue to follow with outpatient provider Plan continued inpatient stay while waiting for placement Admission and Anticipated Discharge Date Admission Date: April 14, 2023 Supervising Physician Co-Signing Physician Notes PA Supervision Note: I did not personally see or examine the patient today, but I verified all daniel points of CHLOÉ Zarco's assessment and plan with the following exceptions/additions: None Subjective patient seen earlier in the morning, sitting up in bed. Reports feeling well, and pain is well-controlled, especially at rest. Does have some minor pain after movement but well-controlled with ice and Tylenol. Moved her bowels yesterday. Feels like she is moving okay with a walker to get up to go to the bathroom while she is nonweightbearing. When I saw her earlier in the day, she was eager to get home and be more comfortable. But after working with occupational therapy, has decided wants to go to rehab at [facility] Was planned for discharge today, but will continue to stay inpatient while awaiting placement. Review of Systems Review of Systems: All systems reviewed & are unremarkable except as noted in Subjective Physical Exam Physical Exam: General: WN/WD, NAD, VS as above Resp: normal respiratory effort, lungs clear to auscultation CV: RRR, no murmur, Extremities: Left leg immobilizer in place, edema to left ankle, bilateral pulses palpable Neuro: A&O x3, Results & Data Results & Data Vital Signs (Past 12 Hours) Vital Signs Temp Pulse Resp BP Pulse Ox O2 Del Method 04/15/23 10:06 36.8 C 54 L 16 137/78 97 04/15/23 08:24 36.8 C 54 L 16 137/78 97 Room Air PG Care Time/CCT Total # of Minutes Spent Total Time Spent with Patient: Total time spent is greater than 50% in coordination of care (as documented) at patient's floor/unit and/or counseling patient: Coding Level of Care Code 24797 SUB INP/OBS CARE 2/35MIN Diagnoses Fracture of tibial plateau, closed S82.142A Encounter type: initial encounter Laterality: left Obesity (BMI 30-39.9) E66.9 Positive DANYEL (antinuclear antibody) R76.8 (1) Fracture of tibial plateau, closed Encounter type: initial encounter Laterality: left Qualified Code(s): S82.142A - Displaced bicondylar fracture of left tibia, initial encounter for closed fracture
[2023-04-15] MEDS ORDERED: traMADol HCL 50 MG TABLET PO PRN (15:13)
[2023-04-15] MEDS ORDERED: IBUPROFEN 800 MG TAB PO PRN (16:17)
[2023-04-15] MEDS: SENNA 8.6 MG TAB PO PRN (22:31)
--- NOTE | 2023-04-15 22:56 | Electrocardiogram Report ---
Test Reason : Blood Pressure : / mmHG Vent. Rate : 072 BPM Atrial Rate : 072 BPM P-R Int : 110 ms QRS Dur : 078 ms QT Int : 416 ms P-R-T Axes : -12 056 039 degrees QTc Int : 455 ms Sinus rhythm When compared with ECG of 04-MAR-2013 12:52, No significant change was found Confirmed by Fco Hahn ([id number]) on 04/15/2023 10:56:16 PM Referred By: REFERRED SELF Confirmed By:Fco Hahn
[2023-04-16] MEDS: APIXABAN 2.5 MG TAB PO SCH (08:23)
[2023-04-16] MEDS: ACETAMINOPHEN 325 MG TAB PO PRN ×2 (08:24→13:08)
--- NOTE | 2023-04-16 10:49 | Discharge Summary ---
Discharge Summary Date of Service April 16, 2023 Notes For Next Care Provider - Follow up on positive DANYEL - Eliquis BID for 14 days, last day 04/27/23 - Nonweight bearing left leg Medication Changes From Visit - Eliquis BID x14 days Admission HPI Per Admitting Provider Pleasant 57-year-old female tripped and fell to the ground injuring her right kn ee. Had difficulty ambulating and came to the ER for further evaluation and treatment. Plain film x-rays were unremarkable for fracture however did show joint effusion. Therefore CT was obtained which showed a tibial plateau fracture with joint effusion. patient was unable to bear significant weight was an unsafe discharge orthopedics was consulted. Per the ER AGUILAR orthopedics recommended chemical DVT prophylaxis the AGUILAR discussed with pharmacy they are recommending the 40 mg of Lovenox twice daily given the patient's weight and creatinine clearance. Will keep the patient n.p.o. after midnight in case she needs to go to the OR which we are doubtful of. Principal Dx & Hospital Course #1 = Principal Diagnosis (1) Fracture of tibial plateau, closed: - Knee xray: no fracture, joint effusion with lipohemarthrosis - Knee CT: Depressed fracture through the medial tibial plateau with extension into the tibial eminence and lateral tibial plateau. Moderate joint effusion. - Left Ankle xray: no fracture, soft tissue swelling present - Orthopedics consulted - No urgent surgical intervention needed. More likely a PCL sprain - Non-weight bearing until outpatient follow up 04/23/2023 - DVT prophylaxis - Eliquis 2.5 mg BID x14 days, last day 04/27/2023 - Tylenol and ice for pain - Discharge to [facility] for acute rehab (2) Obesity (BMI 30-39.9): Chronic/stable (3) Positive DANYEL (antinuclear antibody): Should continue to follow with outpatient provider Plan Discharge to [facility] today Discharge Exam General: WN/WD, NAD, VS as above Resp: normal respiratory effort, lungs clear to auscultation CV: RRR, no murmur, Extremities: Left leg immobilizer in place, mid edema to left ankle, bilateral pulses palpable Neuro: A&O x3, Updated Medication List Medication Instructions Recorded Confirmed Type biotin 10 mg tablet 10 mg PO DAILY 01/17/19 04/14/23 History cholecalciferol (vitamin D3) 50 50 mcg PO DAILY 01/17/19 04/14/23 History mcg (2,000 unit) tablet cyanocobalamin (vitamin B-12) 500 500 mcg PO DAILY 01/17/19 04/14/23 History mcg tablet ferrous gluconate 240 mg (27 mg 240 mg PO DAILY 01/17/19 04/14/23 History iron) tablet vitamin A 2,400 mcg capsule 2,400 mcg PO DAILY 01/17/19 04/14/23 History vitamin B complex 1 cap PO DAILY 01/17/19 04/14/23 History multivitamin (Multiple Vitamins 1 tab PO DAILY 08/31/20 04/14/23 History tablet) calcium carbonate 600 mg-vitamin 1 tab PO DAILY 04/14/23 04/14/23 History D3 20 mcg (800 unit) chewable tablet (Caltrate 600 plus D) acetaminophen 325 mg tablet 650 mg (2 x 325 mg) PO Q4H PRN 04/15/23 Rx Pain 30 days #30 tabs apixaban 2.5 mg tablet (Eliquis) 2.5 mg PO BID 13 days #26 tabs 04/15/23 Rx tramadol 50 mg tablet 50 mg PO Q4H PRN 10 days #10 tabs 04/16/23 Rx Hospital Stay Data Consultations 04/14/23 00:20 ED Decision to Admit Stat 04/14/23 00:55 Consult Orthopedic Surgery Stat Diagnostic Imagining Performed 04/13/23 21:22 CT knee LT wo con Stat Pending Results Patient Have Any Pending Studies at Discharge: No Discharge Instructions Given to Patient (Per Discharging Provider) Ms. Price, Axel were hospitalized after fall with possible tibial plateau fracture vs PCL sprain. For this reason, Orthopedics would like you stay in the knee immbolizer until they are able to reevaluate in the office. You can continue ice and tylenol for pain control. Because you will have limited motion, you are at higher risk for blood clots. For this, we started you an Eliquis, a blood thinner, twice a day for 14 days. Last day 04/27/2023. This may be extended by orthopedics at your follow up appointment. You should NOT take NSAIDs (ibuprofen, naproxen, aleve, etc) while taking this medication. Tylenol is okay to continue. Otherwise you can continue all your home vitamins and supplements. You will be going to [facility] for further PT/OT to prepare to return home. You also should continue follow up with your PCP regarding your positive DANYEL blood work. If you have uncontrolled pain, or new symptoms contact your PCP, orthopedics or return to the ER. It was our pleasure taking care of you, Domitila Zarco PA-C Total Time Total Time Spent Total Time Spent (In Minutes): 35 Supervising Physician Co-Signing Physician Notes PA Supervision Note: I personally saw and examined the patient. I verified all daniel points and agree with CHLOÉ Zarco with the following exceptions and/or additions: S-patient doing okay, pain is controlled, feels ready for discharge to rehab O- Vitals reviewed Gen: AAOx3, NAD HEENT: Anicteric sclerae, EOMI CV: RRR no mgr nl S1S2 Pulm: CTAB no wcr Abd: +BS soft NT ND no masses or hernias Ext: No edema, LLE in knee immobilizer and Jordon wrap Skin: No rashes, warm/dry [id number] female here with left knee PCL strain and possible tibial plateau fracture Stable for discharge with knee immobilizer for rehab Coding Level of Care Code 75177 INP/OBS DISCH >30 MIN Diagnoses Fracture of tibial plateau, closed S82.142A Encounter type: initial encounter Laterality: left Obesity (BMI 30-39.9) E66.9 Positive DANYEL (antinuclear antibody) R76.8
--- NOTE | 2023-04-16 12:10 | Orthopedic Progress Note ---
Date of Service April 16, 2023 Assessment & Plan (1) Fracture of tibial plateau, closed: Plan: The patient was educated regarding today's findings. Demonstrated refilling her knee immobilizer for her, in case that should slide down. Continue with ice and elevation. Continue with her isometric contractions as well as leg lifts in her knee immobilizer, and ankle pumps. Anticipate transfer to [facility] later this afternoon. Follow-up in the office on April [address] Parker as scheduled. Knee immobilizer should be in place at all times. Continue with her Jordon wrap for edema control. She is currently using Tylenol and tramadol for pain control and is doing well with it. I suggested that she try to turn her initial dose about an hour before her first therapy session. Call with any other concerns. Admission and Anticipated Discharge Date Admission Date: April 14, 2023 Subjective This 57-year-old female seen today in her room. She is getting ready to depart for [facility]. She currently has no complaints. She states the knee is fine as long as she is not moving it. She remains in the knee immobilizer. She denies any numbness or tingling. No shortness of breath. No chest pain or abdominal pain. No other complaints. Physical Exam Physical Exam: General: Well-developed, well-nourished, middle-aged female, in no acute distress. Laying in bed. Alert and oriented. Conversive. Skin: Warm and dry with good turgor. No rashes. No peripheral edema. Her Jordon wrap is in place on the knee. It was not removed due to her known fracture. Musculoskeletal: The patient has intact motor function of her ankle and toes. She is able to set her quad as well as contract her gluteal muscles. Neurologic: Gross sensation is intact across her foot and ankle by soft touch. Peripheral pulses are 2+ at the dorsalis pedis and posterior tib. Results & Data Vital Signs (Past 12 Hours) Vital Signs Temp Pulse Resp BP BP Pulse Ox O2 Del Method 04/16/23 11:31 36.7 C 64 16 143/74 H 118/73 96 04/16/23 07:50 36.7 C 64 16 118/73 96 Room Air (1) Fracture of tibial plateau, closed Encounter type: initial encounter Laterality: left Qualified Code(s): S82.142A - Displaced bicondylar fracture of left tibia, initial encounter for closed fracture
== END 2023-04-16 15:41 ==
LOC: ED 19:57 → 3N 19:57 → SUATTDRO 04-14 02:16 → 3N 04-14 02:48

== ENCOUNTER 2024-08-14 22:17 | Observation (INO) ==
--- OUTSIDE RECORDS SUMMARY | 2024-08-14 22:23 | External Medical Summary | Summary of Care ---
Author Name Unknown Organization [facility] Address [address] [facility] [place] [address] Phone [phone] Care Team Providers Care Mate Ship Name Role Phone Donaldo Shay MD Primary Care Provider [phone] Encounter Details Date Type Department Care Team (Late st Contact Info) Description 05/14/2024 Telephone Pre Surgery Center, [facility] [address] [place] [address] Patricia Matthews DO [address] [place] [address] Allergies Active Allergy Reactions Criticality Noted Date Comments Cashew Nut (Anacardium Occidentale) Skin Test 12/01/2023 Codeine Rash 08/20/2023 Dust Mite Extract Unknown 04/24/2021 Egg-Derived Products Unknown 11/29/2021 Food (See Comments) 03/15/2008 Wheat gluten, dairy Gluten Meal High 11/29/2021 Other Reaction(s): PT REPORTS NOW Gramineae Pollens 04/24/2021 Grass Pollen(K-O-R-T-Swt Nakul) Unknown 11/29/2021 Penicillin G Rash 01/11/2020 Penicillins 11/10/1998 rash Pollen 03/06/2017 Nasal congestion, watery eyes documented as of this encounter (statuses as of 08/13/2024) Medications VITAMIN E 400 UNIT PO CAPS One daily Active VITAMIN B-12 500 MCG PO TABS One daily Active ZINC 50 MG PO TABS One daily Active FOLIC ACID 400 MCG PO TABS One daily Active CALCIUM 600 600 MG PO TABS 2 CAPSULES DAILY WITH A MEAL 1 Active Probiotic Acidophilus BioBeads Oral Capsule Take 1 Cap by mouth at bedtime. Active Estradiol 0.025 MG/24HR Transdermal Patch Twice Weekly .COMPLEX 4 Active Alendronate Sodium 70 MG Oral Tablet (Fosamax) Take 1 Tablet by mouth. 4 Active Cyclobenzaprine HCl 5 MG Oral Tablet (Flexeril)Indica tions:Acute right-sided low back pain with right-sided sciatica Take 1 Tablet by mouth 3 times a day as needed for Muscle spasms. 30 Tablet 4 Active Polyethylene Glycol 3350 17 GM/SCOOP Oral Powder (MiraLax) Take 17 g by mouth in the morning. One cap full in juice, to effect 1 stool per day. .. 4 Active documented as of this encounter (statuses as of 08/13/2024) Active Problems Problem Noted Date Diagnosed Date Severe obesity with body mas s index (BMI) of 35.0 to 39.9 with serious comorbidity 05/25/2024 Seborrheic dermatitis 05/11/2008 Overview (01/27/2017): ICD-10 update of inactive term Adult Acne 05/11/2008 INFERTILITY-TUBAL ORIGIN 09/30/2002 Irritable bowel syndrome 06/27/2000 FUNCTIONAL VAGINISMUS Chronic rhinitis documented as of this encounter (statuses as of 08/13/2024) Resolved Problems Problem Noted Date Diagnosed Date Resolved Date ADVANCE DIRECTIVE INFORMATION 03/19/2005 01/11/2020 Overview (03/19/2005): No, Advance Directive brochure given to patient. POST-NASAL DRIP 07/18/1999 01/11/2020 documented as of this encounter (statuses as of 08/13/2024) Immunizations Name Administration Dates Next Due COVID-19 mRNA, LNP-s, No Pre serve, 2-Dose Series (Moderna) 08/24/2020,07/25/2020 COVID-19, mRNA, LNP-s, PF, B ooster, 100mcg/0.5mg (Moderna) 09/10/2021,04/02/2021 Seasonal Influenza Vac., MDV , IM, 0.5 mL (Fluzone) 01/13/2012,02/09/2006 Seasonal Influenza, PF, 6 M & above, IM , (FluLaval or Fluzone) 03/12/2019,02/05/2018,04/07/2017 02/05/2019 Seasonal Influenza, QUAD, wi th Preserv, 6 mons & Above, 0.5 mL, IM 03/12/2020 TD - Tetanus/Diptheria (ADULT) 04/28/2002 TDAP (age 10 and older)(Boostrix) 05/14/2012 documented as of this encounter Social History Tobacco Use Types Packs/Day Years Used Date Smoking Tobacco: Never Smokeless Tobacco: Never Alcohol Use Standard Drinks/Week Comments No 0 (1 standard drink = 0.6 oz pur e alcohol) PHQ-2 Answer Date Recorded PHQ Adult Total Score 0 01/12/2024 Hunger Vital Sign Answer Date Recorded Worried About Running Out of Food in the Last Ye ar Never true 05/07/2019 Ran Out of Food in the Last Year Never true 05/07/2019 Comments No Sex and Gender Information Value Date Recorded Sex Assigned at Not on file Legal Sex Female 5:54 AM EST Gender Identity Not on file Sexual Orientation Straight 05/07/2019 9: 18 AM EST 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 Also reporting an infection in her foot. Procedure scheduled for 05/17/2024 will need postponed. Please call to reschedule documented in this encounter Plan of Treatment Upcoming Encounters Date Type Department Care Team (Latest Contact Info) Description 08/24/2024 11:00 AM EDT Office Visit General Internal Medicine [address] [place], [place] [address] Zen Aldrich MD [address] [place] [phone] 11/12/2024 2:30 PM EDT Office Visit Gynecology Urology, [place] [address] [place] [address] Kavya Sanabria MD [address] [facility] [place], [place] [id number] 12/13/2024 2:00 PM EDT Office Visit Gastroenterology, [facility] [address] [place] [phone] Patricia Figueroa CRNP [address] [place] [address] 12/17/2024 11:15 AM EDT Hospital Encounter ENDO OSSC, Endoscopy Room [facility] [address] [place] [phone] Patricia Matthews DO [address] [place] [address] 12/17/2024 11:15 AM EDT - 12/17/2024 12:15 PM EDT Surgery ENDO OSSC, Endoscopy Room [facility] [address] [place] [phone] Patricia Matthews DO [address] [place] [address] COLONOSCOPY FLEXIBLE PROXIMAL DIAGNOSTIC 12/21/2024 10:30 AM EDT Office Visit Sleep Disorders Ctr [facility] [address] [place] [phone] Lulú Wood CRNP [address] [place] [address] Scheduled Procedures Name Priority Associated Diagnoses Date/Ti me COLONOSCOPY FLEXIBLE PROXIMA L DIAGNOSTIC Recall Family history of colon cancer Special screening for malignant neoplasms, colon Irritable bowel syndrome with mixed bowel habits Generalized abdominal pain Abdominal bloating Family history of colorectal cancer 12/17/2024 11:15 AM EDT ESOPHAGOGASTRODUODENOSCOPY ( EGD), FLEXIBLE, TRANSORAL, DIAGNOSTIC Recall Family history of colon cancer Special screening for malignant neoplasms, colon Irritable bowel syndrome with mixed bowel habits Generalized abdominal pain Abdominal bloating Family history of colorectal cancer 12/17/2024 11:15 AM EDT Health Maintenance Due Date Last Done Comments Hepatitis B Vaccine (1 of 3 - 19+ 3-dose series) 12/11/1983 HPV/Co-Test 1994 Cologuard 2009 Fecal Occult Blood Test 2009 Sigmoidoscopy 2009 Pneumococcal Vaccine: 50+ Years (1 of 1 - PCV) 2014 Cervical Cancer Screening 02/05/2021 Pap Smear 02/05/2021 02/05/2018, 04/2011, 12/18/2007, Additional history exists Colonoscopy 04/17/2023 04/17/2020, 04/17/2020 Colorectal Cancer Screening 04/17/2023 COVID-19 Vaccine ( season) 2023 03/14/2023, 09/10/2021, 04/02/2021, Additional history exists Mammogram 01/31/2024 01/30/2023, 07/2020, 01/29/2021, Additional history exists Influenza Vaccine (FLU shot) (Season Ended) 2024 03/12/2020, 03/12/2020, 03/12/2019, Additional history exists Depression Screening 01/11/2025 01/12/2024 DTap/Tdap Vaccines (3 - Td or Tdap) 03/16/2025 03/16/2015, 05/14/2012, 04/28/2002, Additional history exists Diabetes Screening 04/27/2027 04/27/2024, 0 01/14/2024, 11/24/2023, Additional history exists Lipid Panel 01/13/2029 01/14/2024, 06/26, 03/25/2017, Additional history exists Zoster Vaccines Completed 03/31/2023, 01/17/2023 HPV (Gardasil) Vaccine Aged Out No lo nger eligible based on patient's age to complete this topic MENINGOCOCCAL (MENACTRA/MENVEO) Aged Out No longer eligible based on patient's age to complete this topic Meningitis B Vaccine (Bexsero/Trumemba) Aged Out No longer eligible based on patient's age to complete this topic documented as of this encounter Medical Devices Not on filedocumented as of this encounter Advance Directives Documents on File Type Date Recorded Patient A P Supervisor Expl anation Advance Directives and Living Will 10/06/2003 * No Code Status (Latest Code Status on File) Date Activated Date Inactivated Comments 10/06/2003 9:33 AM 10/06/2003 9:33 AM Care Teams Mate Ship Relationship Specialty Start Date End Date August, Donaldo Richardson MD [address] [facility] [place] [address] PCP - General Family Medicine 05/06/24 documented as of this encounter
--- OUTSIDE RECORDS SUMMARY | 2024-08-14 22:24 | External Medical Summary | Summary of Care ---
Author Name Unknown Organization [facility] Address [address] [place] [facility] [place] [place] [address] Phone [phone] Care Team Providers Care Offal Worker Name Role Phone AugustDonaldo MD Primary Care Provider [phone] Reason for Visit * Reason Onset Date Comments Medication Question 08/12/2024 Encounter Details Date Type Department Care Team (Late st Contact Info) Description [facility]/12[facility] [address] [place] [address] Donaldo Shay MD [address] [place] [address] Medication Question (/) Allergies Active Allergy Reactions Criticality Noted Date [...] 1 stool per day. .. 4 Active Cetirizine HCl 10 MG Oral Tablet (ZyrTEC)Indicati ons:Acute sinusitis, recurrence not specified, unspecified location Take 1 Tablet by mouth in the morning. 30 Tablet 1 5 Active Fluticasone Propionate 50 MCG/ACT Nasal Suspension (Flonase)Indicat ions:Acute sinusitis, recurrence not specified, unspecified location Administer 2 Sprays into each nostril in the morning. 9.9 mL 5 Active Cefdinir 300 MG Oral Capsule (Omnicef)Indicat ions:Acute sinusitis, recurrence not specified, unspecified location Take 1 Capsule by mouth in the morning and 1 Capsule before bedtime. Do all this for 10 days. 20 Capsule 5 08/17/19 25 Active Fluconazole 150 MG Oral Tablet (Diflucan)Indica tions:Yeast vaginitis,Intert riginous candidiasis Take 1 tab once a week for 3 weeks. 3 Tablet 5 Active documented as of this encounter (statuses [...] Vac., MDV , IM, 0.5 mL (Fluzone) 01/13/2012,02/09/2006,03/30/2003 Seasonal Influenza, PF, 6 M & above, [...] encounter Miscellaneous Notes * Telephone Encounter - Maria L Roach PA-C - 08/13/2024 9:11 AM EDT Lizet Inboxologist Note I can change the antibiotic if she likes but no guarantee the diarrhea won't continue Maria L Roach PA-C 08/13/2024 9:11 AM * Telephone Encounter - Lukasz Lloyd OSA - 08/12/2024 5:29 PM EDT Pt called back stating that she is taking probiotic and fiber as well * Telephone Encounter - Maria L Roach PA-C - 08/12/2024 1:01 PM EDT Diarrhea is a common side affect of any antibiotics Can someone triage this a bit? Is she taking probiotics and fiber? Maria L Roach PA-C * Telephone Encounter - Griselda Hutchins CPhT - 08/12/2024 8:22 AM EDT Patient calling she stated she was given Cefdinir and has only taken 3 days worth and has the diarrhea. Can someone please reach out to patient? Thank you, Griselda Hutchins CPhT [facility] 08/12/2024,8:26 AM documented in this encounter Plan of Treatment Upcoming Encounters Date Type Department Care Team (Latest Contact Info) Description 08/24/2024 11:00 AM EDT Office Visit General Internal Medicine [address] [place] [address] Zen Aldrich MD [address] [place] [phone] 11/12/2024 2:30 PM EDT Office Visit Gynecology Urology, [place] [address] [place] [address] Kavya Sanabria MD [address] [facility] [place] [address] 12/13/2024 2:00 PM EDT Office Visit Gastroenterology, [facility] [address] [place] [address] Patricia Figueroa CRNP [address] [place] [address] 12/17/2024 11:15 AM EDT Hospital Encounter ENDO OSSC, Endoscopy Room [facility] [address] [place] [address] Patricia Matthews DO [address] [place] [address] 12/17/2024 11:15 AM EDT - 12/17/2024 12:15 PM EDT Surgery ENDO OSSC, Endoscopy Room [facility] [address] [place] [phone] Patricia Matthews DO [address] [place] [address] COLONOSCOPY FLEXIBLE PROXIMAL DIAGNOSTIC 12/21/2024 10:30 AM EDT Office Visit Sleep Disorders Ctr [facility] [address] [place] [phone] Lulú Wood CRNP [address] [place] [address] Scheduled Procedures Name Priority Associated Diagnoses Date/Ti [...] Cancer Screening 02/05/2021 Pap Smear 02/05/2021 02/05/2018, 1104/2011, 12/18/2007, Additional history exists Colonoscopy 04/17/2023 04/17/2020, [...] Documents on File Type Date Recorded Patient Generation Engineering Technologist Expl anation Advance Directives and Living Will 10/06/2003 * No Code Status (Latest Code Status on File) Date Activated Date Inactivated Comments 10/06/2003 9:33 AM 10/06/2003 9:33 AM Care Teams Offal Worker Relationship Specialty Start Date End Date August, Donaldo Richardson MD [address] [place] [address] PCP - General Family Medicine 05/06/24 documented as of this encounter
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
--- OUTSIDE RECORDS SUMMARY | 2024-08-14 22:24 | External Medical Summary ---
Author Name Unknown Address Unknown Organization [id number]:[facility] [place] [address] [facility] [address] [facility] [address] Laboratory Report Ordering Provider Test Date Status JAIRO DAILY 08/11/2024 13:45:48 Final Observation Date Value Abnormality Reference (Units ) Status Bacterial vaginosis [Interpretation] in Vaginal fluid Qualitative 08/11/2024 13:45:48 Negative Negative Final Negative for Bacterial Vagin osis. Correlate results with other clinical findings. Linda sp DNA [Presence] in Vaginal fluid by Probe 08/11/2024 13:45:48 Positive Abnormal Negative Final Linda species group RNA de tected. Correlate results with other clinical findings. Linda glabrata RNA [Presen ce] in Vaginal fluid by PONCE with probe detection 08/11/2024 13:45:48 Negative Negative Final No Linda glabrata RNA dete cted. Correlate results with other clinical findings. Trichomonas vaginalis DNA [P resence] in Vaginal fluid by Probe 08/11/2024 13:45:48 Negative Negative Final No Trichomonas vaginalis RNA detected. Performing Location LABORATORY C - [address] [facility] [address]
--- OUTSIDE RECORDS SUMMARY | 2024-08-14 22:24 | External Medical Summary | Summary of Care ---
Author Name Unknown Organization [facility] Address [address] [facility] [place] [address] Phone [phone] Care Team Providers Care Greenhouse Superintendent Name Role Phone Donaldo Shay MD Primary Care Provider [phone] Reason for Visit * Reason Comments Acute [...] Description 08/11/2024 1:20 PM EDT Office Visit [facility] [address] [place] [address] Cherri Mansfield MD [address] [facility] [place] [id number] Intertriginous candidiasis*; Yeast vaginitis Allergies Active Allergy [...] in this note was generated using an [employer] documentation service. I discussed the use of [...] 2:30 PM EDT Office Visit Gynecology Urology, [place] [address] [place] [address] Kavya Sanabria MD [address] [facility] [place] [id number] 12/13/2024 2:00 PM EDT Office Visit Gastroenterology, [facility] [address] [place] [address] Patricia Figueroa CRNP [address] [place] [address] 12/17/2024 11:15 AM EDT Hospital Encounter ENDO [facility], Endoscopy Room [facility] [address] [place] [address] Patricia Matthews, DO [address] [place] [address] 12/17/2024 11:15 AM EDT - 12/17/2024 12:15 PM EDT Surgery ENDO [facility], Endoscopy Room [facility] [address] [place] [address] Patricia Matthews, DO [address] [place] [address] COLONOSCOPY FLEXIBLE PROXIMAL DIAGNOSTIC 12/21/2024 10:30 AM EDT Office Visit Sleep Disorders Ctr [facility] [address] [place] [phone] Lulú Wood CRNP [address] [place] [address] Pending Results Name Type Priority Associated Diagnoses [...] Documents on File Type Date Recorded Patient Oncology Physician Expl anation Advance Directives and Living Will 10/06/2003 * No Code Status (Latest Code Status on File) Date Activated Date Inactivated Comments 10/06/2003 9:33 AM 10/06/2003 9:33 AM Care Teams Greenhouse Superintendent Relationship Specialty Start Date End Date August, Donaldo Richardson MD [address] [facility] [place] [address] PCP - General Family Medicine 05/06/24 documented as of this encounter
--- OUTSIDE RECORDS SUMMARY | 2024-08-14 22:24 | External Medical Summary | Summary of Care ---
Author Name Unknown Organization [facility] Address [address] [facility] [place] [address] Phone [phone] Care Team Providers Care Harness Brusher Name Role Phone AugustDonaldo MD Primary Care Provider [phone] Reason for Visit * Reason Onset Date Comments Medication Question 08/12/2024 Encounter Details Date Type Department Care Team (Late st Contact Info) Description [facility] [address] [place] [address] Donaldo Shay MD 226 [facility] [place] [address] Medication Question (/) Allergies Active Allergy [...] encounter Miscellaneous Notes * Telephone Encounter - Lukasz Lloyd OSA [...] to patient? Thank you, Griselda Hutchins CPhT Scrap Collector [facility] 08/12/2024,8:26 AM documented in this encounter Plan of Treatment Upcoming Encounters Date Type Department Care Team (Latest Contact Info) Description 08/24/2024 11:00 AM EDT Office Visit General Internal Medicine [address] [place] [address] Zen Aldrich MD [address] [place] [address] 11/12/2024 2:30 PM EDT Office Visit Gynecology Urology, [place] [address] [place] [address] Kavya Sanabria MD [address] [facility] [place] [place] [address] 12/13/2024 2:00 PM EDT Office Visit Gastroenterology, [facility] [address] [place] [phone] Patricia Figueroa CRNP [address] [place] [address] 12/17/2024 11:15 AM EDT Hospital Encounter ENDO [facility], Endoscopy Room [facility] [address] [place] [phone] Patricia Matthews DO [address] [place] [address] 12/17/2024 11:15 AM EDT - 12/17/2024 12:15 PM EDT Surgery ENDO [facility], Endoscopy Room [facility] [address] [place] [phone] Patricia Matthews DO [address] [place] [address] COLONOSCOPY FLEXIBLE PROXIMAL DIAGNOSTIC 12/21/2024 10:30 AM EDT Office Visit Sleep Disorders Ctr [facility] [address] [place] [address] Lulú Wood CRNP [address] [place] [address] Scheduled Procedures Name Priority Associated Diagnoses Date/Ti [...] Documents on File Type Date Recorded Patient Sample Display Preparer Expl anation Advance Directives and Living Will 10/06/2003 * No Code Status (Latest Code Status on File) Date Activated Date Inactivated Comments 10/06/2003 9:33 AM 10/06/2003 9:33 AM Care Teams Harness Brusher Relationship Specialty Start Date End Date August, Donaldo Richardson MD [address] [facility] [place] [address] PCP - General Family Medicine 05/06/24 documented as of this encounter
--- OUTSIDE RECORDS SUMMARY | 2024-08-14 22:24 | External Medical Summary | Summary of Care ---
Author Name Unknown Organization [facility] Address [address] [facility] [place] [address] Phone [phone] Care Team Providers Care Furnace Feeder Name Role Phone AugustDonaldo MD Primary Care Provider [phone] Reason for Visit * Reason Onset Date Comments Medication Question 08/12/2024 Encounter Details Date Type Department Care Team (Late st Contact Info) Description 08/12/2024 [facility] [address] [place] [address] Donaldo Shay MD [address] [facility] [place] [address] Medication Question (/) Allergies Active Allergy [...] as of this encounter (statuses as of 08/12/2024) Medications VITAMIN E 400 UNIT PO CAPS [...] as of this encounter (statuses as of 08/12/2024) Active Problems Problem Noted Date Diagnosed Date Severe obesity with body mas s index (BMI) of 35.0 to 39.9 with serious comorbidity 05/25/2024 Seborrheic dermatitis 05/11/2008 Overview (01/27/2017): ICD-10 update of inactive term Adult Acne 05/11/2008 INFERTILITY-TUBAL ORIGIN 09/30/2002 Irritable bowel syndrome 06/27/2000 FUNCTIONAL VAGINISMUS Chronic rhinitis documented as of this encounter (statuses as of 08/12/2024) Resolved Problems Problem Noted Date Diagnosed Date Resolved Date ADVANCE DIRECTIVE INFORMATION 03/19/2005 01/11/2020 Overview (03/19/2005): No, Advance Directive brochure given to patient. POST-NASAL DRIP 07/18/1999 01/11/2020 documented as of this encounter (statuses as of 08/12/2024) Immunizations Name Administration Dates Next Due COVID-19 [...] to patient? Thank you, Griselda Hutchins CPhT Pitching Coach [facility] ([facility] 08/12/2024,8:26 AM documented in this encounter Plan of Treatment Upcoming Encounters Date Type Department Care Team (Latest Contact Info) Description 08/24/2024 11:00 AM EDT Office Visit General Internal Medicine [address] [place] [address] [phone] Zen Aldrich MD [address] [place] [address] 11/12/2024 2:30 PM EDT Office Visit Gynecology Urology, [place] [address] [place] [address] Kavya Sanabria MD [address] [place] [facility] [place] [address] 12/13/2024 2:00 PM EDT Office Visit Gastroenterology, [facility] [address] [place] [phone] Patricia Figueroa CRNP [address] [place] [address] 12/17/2024 11:15 AM EDT Hospital Encounter ENDO [facility], Endoscopy Room [facility] [address] [place] [phone] Patricia Matthews DO [address] [place] [address] 12/17/2024 11:15 AM EDT - 12/17/2024 12:15 PM EDT Surgery [facility]O [facility], Endoscopy Room [facility] [address] [place] [phone] Patricia Matthews DO [address] [place] [address] COLONOSCOPY FLEXIBLE PROXIMAL DIAGNOSTIC 12/21/2024 10:30 AM EDT [facility] [address] [place] [address] Lulú Wood CRNP [address] [place] [address] Scheduled Procedures Name Priority Associated Diagnoses Date/Ti [...] Documents on File Type Date Recorded Patient Lens Gauger Expl anation Advance Directives and Living Will 10/06/2003 * No Code Status (Latest Code Status on File) Date Activated Date Inactivated Comments 10/06/2003 9:33 AM 10/06/2003 9:33 AM Care Teams Furnace Feeder Relationship Specialty Start Date End Date August, Donaldo Richardson MD [address] [facility] [place] [address] PCP - General Family Medicine 05/06/24 documented as of this encounter
--- NOTE | 2024-08-14 22:35 | Emergency Department Note ---
Impression & Plan Diverticulitis, Abdominal pain ED Provider Note NAME: ERIC RUBIO AGE: 58 SEX: F : 1965 ARRIVES VIA: Ambulance INFORMANT: Patient, ED PROVIDER(S): Avery Silva DO CHIEF COMPLAINT: Abdominal pain HPI: The patient is a 58-year-old female who presented to the emergency department for upper abdominal pain. The patient states that she was started on an antibiotic recently. This caused her to have some diarrhea. She took some medication but now she has upper abdominal pain. She denies having any fever. She did have nausea previously. She denies having any cough or chest pain. The patient called [phone] because of the degree of pain this evening. The patient denies having any rectal bleeding. ROS: See above HPI for pertinent positives & negatives. A total of 10 systems reviewed and were otherwise negative. PAST MEDICAL HISTORY: See Below PAST SURGICAL HISTORY: See Below FAMILY HISTORY: See Below SOCIAL HISTORY: See Below HOME MEDICATIONS: See Below ALLERGIES: See Below VITALS: See Below PHYSICAL EXAMINATION: GENERAL: Patient is awake alert in no acute distress patient is resting comfortably and showing no signs of anxiety EYES: The conjunctivae are clear. The pupils are round and reactive. EARS, NOSE, MOUTH AND THROAT: The nose is without any evidence of any deformity. NECK: The neck is nontender and supple. RESPIRATORY: Normal respiratory effort is noted there is no evidence of wheezing rhonchi or rales CARDIOVASCULAR: Regular rate and rhythm noted there no murmurs rubs or gallops normal S1 normal S2. GASTROINTESTINAL: The abdomen was soft and mildly distended. There was diffuse tenderness to palpation. There was specific tenderness in the right upper quadrant. MUSCULOSKELETAL/EXTREMITIES: There is no evidence of gross deformity full range of motion is noted in the hips and shoulders. SKIN: There is no obvious evidence of any rash. There are no petechiae, pallor or cyanosis noted. NEUROLOGIC: Patient is awake alert and oriented x3 MEDICAL DECISION MAKING: The patient is a 58-year-old female who presented to the emergency department for an evaluation of abdominal pain. The patient had upper abdominal pain and across the epigastric region. The patient's pain was significant. She was treated with IV pain medication and IV antiemetics. She was also treated with IV antibiotics when imaging appeared to be consistent with diverticulitis with possible microperforation. I discussed the patient's laboratory and radiographic studies with her. She was feeling much better on reevaluation. I discussed her condition with the on-call general surgeon as well as the on-call [facility] hospitalist group. They have agreed to see the patient in the emergency department for further management and disposition. Triage Nursing notes reviewed. Prior medical records reviewed Vital Signs: reviewed and remarkable for elevated blood pressure. Differential diagnosis: Etiologies such as appendicitis, diverticulitis, obstruction, inflammatory bowel disease, renal colic, PUD, biliary pathology, pancreatitis, mesenteric ischemia, aortic pathology, infections, genitourinary, UTI, perforated viscus, as well as others were entertained. ER treatment provided: See below Diagnostics interpreted by me: ECG: EKG was obtained in the emergency department. My interpretation is normal sinus rhythm at 69 bpm. There was no ectopy. There was no acute ST segment abnormalities noted. This was compared to a tracing from April 13, 2023. No changes were noted. Cardiac Monitoring: An order was placed for continuous cardiac monitoring. The monitor shows a rate of 70 bpm with sinus rhythm. Laboratory studies: As stated above and show below. Imaging studies: See below. Radiographic imaging was reviewed by myself Consultation(s): I discussed this case with Dr. Andrews who is on-call for the general surgical group. I discussed this case with Ervin who is covering for the [facility] hospitalist group. Past Med/Surg History Problem List (Updated 08/15/24 @ 00:41 by Avery Silva DO) Abdominal pain (Acute) Diverticulitis (Acute) Sleep apnea Allergic rhinitis due to dust mite Allergic rhinitis due to animal dander Dietary counseling and surveillance Abnormal weight gain Obesity Vaginal dryness Osteoporosis Injury of posterior cruciate ligament of right knee Obesity (BMI 30-39.9) Fracture of tibial plateau, closed (Acute ~04/13/23) from a fall Bilateral plantar fasciitis Positive DANYEL (antinuclear antibody) Family history of osteoporosis Chronic sinusitis Allergic rhinitis IBS (irritable bowel syndrome) (Chronic) Ureteral calculi (Acute) Medical History Vitamin D deficiency 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 Vaginismus Hypokalemia Varicella Post-menopausal bleeding Endometriosis Surgical History S/P colonoscopy 03/2020 Mikaela, simoneg, 3 yrs H/O lithotripsy S/P tonsillectomy History of hysteroscopy [id number]/28/[id number] Endometrium S/P dilatation and curettage 08/28/2015 History of endometrial biopsy History of appendectomy Family History Uncle Hx of CABG Paternal Coronary heart disease Paternal Brother Diabetes Mother Hypertension Colorectal cancer Mother Malignant neoplasm of gastrointestinal tract Other Hyperlipidemia Migraine Prostate cancer Denies family history of Ovarian cancer Breast cancer Social History Smoking Status: Never smoker Second Hand Exposure: No; Do You Dip or Chew Tobacco: No; Hx Alcohol Use: No Hx Substance Use: No Preferred Language: Zambian Communication Ability: Effective Filtrose Crusher Required: No Beliefs That Will Affect Care: None marital status: Current Living Situation: Spouse current occupational status: retired Feels Safe at Home: Yes Childhood Exposure to Second-Hand Smoke: No Diet Comment: restrictive diet caffeine: No Dental Care, Regularly: Yes Physical Activity Frequency: Daily Seatbelt Use: always Sunscreen Use: Yes Assistive Devices: Cane, Walker and Other Allergies Allergies Allergy/AdvReac Type Severity Reaction Status Date / Time grass pollen Allergy Mild Sneezing Verified 08/14/24 23:32 house dust Allergy Mild Sneezing Verified 08/14/24 23:32 oxycodone Allergy Mild Rash Verified 08/14/24 23:32 Penicillins Allergy Mild RASH Verified 08/14/24 23:32 gluten AdvReac Severe Gastrointestinal Verified 08/14/24 23:32 Upset lactose AdvReac Severe Gastrointestinal Verified 08/14/24 23:32 Upset egg AdvReac Intermediate GAS/BLOATIN Verified 08/14/24 23:32 G Home Meds Home Medications Medication Instructions Recorded Confirmed biotin 10 mg tablet 10 mg PO DAILY 01/17/19 08/14/24 cholecalciferol (vitamin D3) 50 50 mcg PO DAILY 01/17/19 08/14/24 mcg (2,000 unit) tablet cyanocobalamin (vitamin B-12) 500 500 mcg PO DAILY 01/17/19 08/14/24 mcg tablet ferrous gluconate 240 mg (27 mg 240 mg PO DAILY 01/17/19 08/14/24 iron) tablet vitamin A 2,400 mcg capsule 2,400 mcg PO DAILY 01/17/19 08/14/24 vitamin B complex 1 cap PO DAILY 01/17/19 08/14/24 multivitamin (Multiple Vitamins 1 tab PO DAILY 08/31/20 08/14/24 tablet) calcium 600 mg (as carbonate)-vit 1 tab PO DAILY 04/14/23 08/14/24 D3 20 mcg (800 unit) chewable tablet (Caltrate plus D) cyclobenzaprine 5 mg tablet 5 mg PO DAILY PRN MUSCLE SPASMS 05/18/24 08/14/24 fluconazole 4 %-ibuprofen 2 0 ml topical DIRECTED PRN 06/29/24 08/14/24 %-itraconazole 1 %-terbin 4 % NEEDED PER PT topical soln Previous Rx's Medication Instructions Recorded estradiol 10 mcg vaginal tablet 10 mcg vaginal .COMPLEX #24 tabs 07/30/24 (Yuvafem) Results & Data (ED) Vital Signs Vital Signs - 24 hr 08/14/24 22:25 08/14/24 23:00 08/14/24 23:40 Temperature 37.4 C Temperature Source Oral Pulse Rate 72 70 Respiratory Rate 18 Respiratory Effort / Characteristics Non-Labored Spontaneous Respiratory Depth Normal Respiratory Pattern Regular Blood Pressure 147/60 H Blood Pressure Mean 89 Blood Pressure Position Lying Pulse Oximetry 96 Oxygen Delivery Method Room Air Room Air Sepsis Recent Fever Within 48 Hours No Sepsis New/Unexplained Change in Mental Status N/A Sepsis Action Taken by Nursing No Action Required Home Medications Current Medication List: was personally reviewed by me Laboratory Data Attestation: I reviewed the patient's lab results. 08/14/24 22:31 08/14/24 22:31 Lab Results 08/14/24 Range/Units 22:31 WBC 15.57 H (4.8-10.8) K/ul RBC 4.32 (4.20-5.40) M/uL Hgb 12.8 (12.0-16.0) g/dl Hct 38.8 (37.0-47.0) % MCV 89.8 (80.0-100.0) fL MCH 29.6 (25.0-34.0) pg MCHC 33.0 (32.0-36.0) g/dL RDW Std Deviation 39.7 (36.4-46.3) fL RDW Coeff of [facility] 12.1 (11.5-14.5) % Plt Count 354 (130-400) K/uL MPV 10.8 (9.4-12.4) fL Immature Gran % (Auto) 0.4 % Neut % (Auto) 71.5 % Lymph % (Auto) 21.1 % [place] % (Auto) 5.7 % Eos % (Auto) 1.0 % Baso % (Auto) 0.3 % Neut # (Auto) 11.13 H (1.40-6.50) K/uL Lymph # (Auto) 3.28 (1.20-3.40) K/uL [place] # (Auto) 0.88 H (0.11-0.59) K/uL Eos # (Auto) 0.16 (0.00-0.50) K/uL Baso # (Auto) 0.05 (0.00-0.20) K/uL Immature Gran # (Auto) 0.07 (0.01-0.20) K/uL Sodium 135 L (136-145) mmol/L Potassium 4.4 (3.5-5.1) mmol/L Chloride 100 (98-107) mmol/L Carbon Dioxide 28 (21-32) mmol/L Anion Gap 7 (3-11) BUN 11 (6-23) mg/dl Creatinine 0.75 (0.6-1.2) mg/dl Est Cr Clr Drug Dosing 103.9 ml/min eGFR 91.65 BUN/Creatinine Ratio 14.7 (10-20) Glucose 259 H (70-99(Fasting)) mg/dl Calcium 9.2 (8.6-10.3) mg/dl Total Bilirubin 0.6 (0.2-1.0) mg/dl AST 16 (13-39) U/L ALT 15 (7-52) U/L Alkaline Phosphatase 130 H (34-104) U/L Troponin I High Sens 6.3 (0-14) pg/ml Total Protein 7.1 (6.0-8.3) gm/dl Albumin 4.0 (3.4-5.0) gm/dl Globulin 3.1 (2.5-4.0) gm/dl Albumin/Globulin Ratio 1.3 (0.9-2) Lipase 33 (11-82) U/L Administered Medications Cefoxitin Sodium (Mefoxin) 2,000 mg in 60 mls @ 100 mls/hr IV NOW STA Stop: 08/15/24 00:41 Last Admin: 08/15/24 00:23 Dose: 100 mls/hr Documented By: Morphine Sulfate (Morphine Sulfate 4 Mg/Ml 1 Ml Carp\Vial) 4 mg IV Q15M PRN PRN Reason: Pain Stop: 08/28/24 22:30 Last Admin: 08/14/24 22:51 Dose: 4 mg Documented By: Discontinued Medications Sodium Chloride (Nss) 500 mls @ 999 mls/hr IV .Q31M ONE Stop: 08/14/24 23:01 Last Infusion: 08/15/24 00:15 Dose: Infused Documented By: Admin: 08/14/24 22:50 Dose: 999 mls/hr Documented By: Ioversol (Optiray 320 100ml) 100 ml IV ONCE ONE Stop: 08/14/24 23:29 Last Admin: 08/14/24 23:28 Dose: 93 ml Documented By: ELI Ondansetron HCl (Ondansetron Inj 2 Mg/Ml 2 Ml Vial) 4 mg IV NOW STA Stop: 08/14/24 22:32 Last Admin: 08/14/24 22:51 Dose: 4 mg Documented By: Imaging Data Attestation: I personally reviewed and interpreted this imaging study as follows: My Impression: CT of the abdomen and pelvis was obtained in the emergency department. My interpretation is no definite bowel obstruction, there is stranding in the transverse colon noted, final report below. Radiologist's Impression: Abdomen/Pelvis CT 08/14/24 22:31 Exam(s): CT ABDOMEN + PELVIS With Contrast IV Amt: 93 ML OPTIRAY 320 EXAM: CT Abdomen and Pelvis With Intravenous Contrast CLINICAL HISTORY: Reason for exam: RUQ pain. TECHNIQUE: Axial computed tomography images of the abdomen and pelvis with intravenous contrast. CTDI is 27.73 mGy and DLP is 1374.21 mGy-cm. Automated exposure control was utilized for the study. A dose lowering technique was utilized adhering to the principles of ALARA. CONTRAST: Patient received 93 ML OPTIRAY 320 of IV contrast COMPARISON: 6/30/17 FINDINGS: Lung bases: Unremarkable. ABDOMEN: Liver: Unremarkable. No mass. Gallbladder and bile ducts: Unremarkable. No calcified stones. No ductal dilation. Pancreas: Unremarkable. No mass. No ductal dilation. Spleen: Unremarkable. No splenomegaly. Adrenals: Unremarkable. No mass. Kidneys and ureters: Unremarkable. No solid mass. No hydronephrosis. Stomach and bowel: Acute diverticulitis of the mid transverse colon. Prominent gas-filled diverticulum (coronal 17). Trace microperforation cannot be excluded. No abscess. No bowel obstruction. Diverticulosis. PELVIS: Appendix: No findings to suggest acute appendicitis. Bladder: Unremarkable. No mass. Reproductive: Unremarkable as visualized. ABDOMEN and PELVIS: Intraperitoneal space: Unremarkable. No free pneumoperitoneum. No abscess. No ascites. Bones/joints: No acute fracture. No dislocation. Soft tissues: Unremarkable. Vasculature: Unremarkable. No abdominal aortic aneurysm. Lymph nodes: Unremarkable. No enlarged lymph nodes. IMPRESSION: Acute diverticulitis of the mid transverse colon. Prominent gas-filled diverticulum (coronal 17). Trace microperforation cannot be excluded. No abscess. Electronically signed by: Dinesh David M.D. 08/15/24 00:11 AM Discharge Plan Visit Data Chief Complaint: Abdominal Pain Stated Complaint: Abdominal Pain, Diarrhea ED Provider: Avery Silva Discharge Problem: Diverticulitis, Abdominal pain Patient Disposition: Being Evaluated by Hospitalist Forms Stand Alone Forms: My [facility] Prescriptions Prescriptions: No Action estradiol [Yuvafem] 10 mcg tablet 10 mcg vaginal .COMPLEX Qty: 24 3RF Rx Instructions: 10 mcg vaginally 2x/wk; cholecalciferol (vitamin D3) 2,000 unit tablet 50 mcg PO DAILY biotin 10 mg tablet 10 mg PO DAILY ferrous gluconate 240 mg (27 mg iron) tablet 240 mg PO DAILY cyanocobalamin (vitamin B-12) 500 mcg tablet 500 mcg PO DAILY vitamin A 8,000 unit capsule 2,400 mcg PO DAILY vitamin B complex capsule 1 cap PO DAILY multivitamin [Multiple Vitamins] Tablet 1 tab PO DAILY cyclobenzaprine 5 mg tablet 5 mg PO DAILY PRN (Reason: MUSCLE SPASMS) rqozjpw-qohpouy-xcjcckj-terbin 4-2-1-4 % solution 0 ml topical DIRECTED PRN (Reason: NEEDED PER PT) Caltrate 600 plus D 600 mg-20 mcg (800 unit) Tablet,Chewable 1 tab PO DAILY Referrals Referrals: Catie Mccloud MD [Primary Care Provider] -
[2024-08-14] MEDS: SODIUM CHLORIDE 0.9% 500 ML IV ONE (22:50)
[2024-08-14] MEDS: MoRPHine SULFATE 4 MG/ML 1 ML CARP\\VIAL IV PRN (22:51)
[2024-08-14] MEDS: ONDANSETRON INJ 2 MG/ML 2 ML VIAL IV STA (22:51)
[2024-08-14 23:02] LABS: Basophils # (auto) 0.05 K/uL (0.00-0.20); Basophils % (auto) 0.3 %; Eosinophils # (auto) 0.16 K/uL (0.00-0.50); Hematocrit (blood only) 38.8 % (37.0-47.0); Hemoglobin 12.8 g/dl (12.0-16.0); Immature Granulocytes # (auto) 0.07 K/uL (0.01-0.20); Immature Granulocytes % (auto) 0.4 %; Lymphocytes # (auto) 3.28 K/uL (1.20-3.40); Lymphocytes % (auto) 21.1 %; Mean Corpuscular Hemoglobin 29.6 pg (25.0-34.0); Mean Corpuscular Volume 89.8 fL (80.0-100.0); Mean Platelet Volume 10.8 fL (9.4-12.4); Monocytes # (auto) 0.88 K/uL (0.11-0.59); Monocytes % (auto) 5.7 %; Neutrophils # (auto) 11.13 K/uL (1.40-6.50); Neutrophils % (auto) 71.5 %; Platelet Count 354 K/uL (130-400); RDW Coefficient of Variation 12.1 % (11.5-14.5); RDW Standard Deviation 39.7 fL (36.4-46.3); Red Blood Count 4.32 M/uL (4.20-5.40); White Blood Count 15.57 K/ul (4.8-10.8)
[2024-08-14 23:17] LABS: Albumin Globulin Ratio 1.3 (0.9-2); BUN Creatinine Ratio 14.7 (10-20); Bilirubin,Total 0.6 mg/dl (0.2-1.0); Calcium 9.2 mg/dl (8.6-10.3); Creatinine Clr Calc Pharmacy 103.9 ml/min; Globulin 3.1 gm/dl (2.5-4.0); Potassium 4.4 mmol/L (3.5-5.1); Total Protein 7.1 gm/dl (6.0-8.3)
[2024-08-14 23:23] LABS: Troponin I High Sensitivity 6.3 pg/ml (0-14)
[2024-08-14] MEDS: OPTIRAY 320 100ml IV ONE (23:28)
--- NOTE | 2024-08-15 00:12 | CT Scan Report ---
Exam(s): CT ABDOMEN + PELVIS With Contrast IV Amt: 93 ML OPTIRAY 320 EXAM: CT Abdomen and Pelvis With Intravenous Contrast CLINICAL HISTORY: Reason for exam: RUQ pain. TECHNIQUE: Axial computed tomography images of the abdomen and pelvis with intravenous contrast. CTDI is 27.73 mGy and DLP is 1374.21 mGy-cm. Automated exposure control was utilized for the study. A dose lowering technique was utilized adhering to the principles of ALARA. CONTRAST: Patient received 93 ML OPTIRAY 320 of IV contrast COMPARISON: 10/25/16 FINDINGS: Lung bases: Unremarkable. ABDOMEN: Liver: Unremarkable. No mass. Gallbladder and bile ducts: Unremarkable. No calcified stones. No ductal dilation. Pancreas: Unremarkable. No mass. No ductal dilation. Spleen: Unremarkable. No splenomegaly. Adrenals: Unremarkable. No mass. Kidneys and ureters: Unremarkable. No solid mass. No hydronephrosis. Stomach and bowel: Acute diverticulitis of the mid transverse colon. Prominent gas-filled diverticulum (coronal 17). Trace microperforation cannot be excluded. No abscess. No bowel obstruction. Diverticulosis. PELVIS: Appendix: No findings to suggest acute appendicitis. Bladder: Unremarkable. No mass. Reproductive: Unremarkable as visualized. ABDOMEN and PELVIS: Intraperitoneal space: Unremarkable. No free pneumoperitoneum. No abscess. No ascites. Bones/joints: No acute fracture. No dislocation. Soft tissues: Unremarkable. Vasculature: Unremarkable. No abdominal aortic aneurysm. Lymph nodes: Unremarkable. No enlarged lymph nodes. IMPRESSION: Acute diverticulitis of the mid transverse colon. Prominent gas-filled diverticulum (coronal 17). Trace microperforation cannot be excluded. No abscess. Electronically signed by: Dinesh David M.D. 08/15/24 00:11 AM
[2024-08-15] MEDS: cefOXitin 2,000 MG/60 ML BAG IV STA (00:23)
--- NOTE | 2024-08-15 00:39 | History & Physical Report ---
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 ED evaluation reveals leukocytosis 15.57, stable H&H of 12.8/38.8; CMP sodium 135, glucose 259, alk phos 130; lipase 33; troponin 6.3; CTAP evidence of acute diverticulitis in the mid transverse colon and prominent gas-filled diverticulum, trace microperforation cannot be excluded, no abscess; EKG sinus rhythm with a short KY interval at 69 bpm.; Patient provided with 500 mL NSS, ondansetron 4 mg IV, morphine sulfate 4 mg IV, metronidazole 500 mg IV, and cefoxitin 2 g IV in ED. 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 Without guarding or peritoneal signs at admission. Hemodynamically stable. - CBC leukocytosis 15.57, H&H stable; CMP grossly unremarkable with exception of alk phos 130; lipase 33; Pro-Amauri and lactate pending - CBC, BMP am - CTAP acute diverticulitis in mid transverse colon and prominent gas-filled diverticulum, trace microperforation cannot be excluded, no abscess identified - Stool studies pending - NPO - IVF LR @ 80 mL/hr - Zofran prn N/V - Morphine prn pain - Ceftriaxone IV + Metronidazole IV - Gen sx not consulted at time of admission #Hyperglycemia- Found on admission, glucose 259 and without history of DM. A1c pending. #Positive DANYEL/OP- Follows with rheumatology, stable; vitamin supplements for OP Dispo: Admit, med/sx VTE Prophylaxis: SCDs This document was dictated utilizing [employer]. Please excuse any grammatical errors that may be secondary to use of this software. 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 States that "earlier this week" she was started on antibiotics for a sinus infection, as well as prednisone (fill history shows Cefdinir). 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 She describes the pain at its worst a 10/10 on the pain scale, describing it as tense and "everywhere". Admits to some nausea as well, without vomiting. She was able to have a BM that helps to alleviate some of the pain very minimally but the pain was persistent. She is experiencing some SOB when her "stomach feels full of gas". 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 States that her current pain is around a 4/10 on the pain scale following administration of pain meds, and that she feels some relief of the pain when she passes gas. Overall, denies chest pain, current SOB, palpitations, constipation, numbness/tingling, current URI symptoms, chills, or weakness. States that she has never had this happen before. Did take IBU to try to help with the pain, minimal relief. ED evaluation reveals leukocytosis 15.57, stable H&H of 12.8/38.8; CMP sodium 135, glucose 259, alk phos 130; lipase 33; troponin 6.3; CTAP evidence of acute diverticulitis in the mid transverse colon and prominent gas-filled diverticulum, trace microperforation cannot be excluded, no abscess; EKG sinus rhythm with a short KY interval at 69 bpm.; Patient provided with 500 mL NSS, ondansetron 4 mg IV, morphine sulfate 4 mg IV, metronidazole 500 mg IV, and cefoxitin 2 g IV in ED. Please see Dr. Gomez's attestation for adjustments/additions to treatment plan. Allergies Allergy/AdvReac Type Severity Reaction Status Date / Time grass pollen Allergy Mild Sneezing Verified 08/14/24 23:32 house dust Allergy Mild Sneezing Verified 08/14/24 23:32 oxycodone Allergy Mild Rash Verified 08/14/24 23:32 Penicillins Allergy Mild RASH Verified 08/14/24 23:32 gluten AdvReac Severe Gastrointestinal Verified 08/14/24 23:32 Upset lactose AdvReac Severe Gastrointestinal Verified 08/14/24 23:32 Upset egg AdvReac Intermediate GAS/BLOATIN Verified 08/14/24 23:32 G Home Medications Medication Instructions Recorded Confirmed Type biotin 10 mg tablet 10 mg PO DAILY 01/17/19 08/18/24 History cholecalciferol (vitamin D3) 50 50 mcg PO DAILY 01/17/19 08/18/24 History mcg (2,000 unit) tablet cyanocobalamin (vitamin B-12) 500 500 mcg PO DAILY 01/17/19 08/18/24 History mcg tablet ferrous gluconate 240 mg (27 mg 240 mg PO DAILY 01/17/19 08/18/24 History iron) tablet vitamin A 2,400 mcg capsule 2,400 mcg PO DAILY 01/17/19 08/18/24 History vitamin B complex 1 cap PO DAILY 01/17/19 08/18/24 History multivitamin (Multiple Vitamins 1 tab PO DAILY 08/31/20 08/18/24 History tablet) calcium 600 mg (as carbonate)-vit 1 tab PO DAILY 04/14/23 08/18/24 History D3 20 mcg (800 unit) chewable tablet (Caltrate plus D) cyclobenzaprine 5 mg tablet 5 mg PO DAILY PRN MUSCLE SPASMS 05/18/24 08/18/24 History fluconazole 4 %-ibuprofen 2 0 ml topical DIRECTED PRN 06/29/24 08/18/24 History %-itraconazole 1 %-terbin 4 % NEEDED PER PT topical soln estradiol 10 mcg vaginal tablet 10 mcg vaginal .COMPLEX #24 tabs 07/30/24 08/18/24 Rx (Yuvafem) blood sugar diagnostic (OneTouch #30 ea 08/16/24 08/18/24 Rx Verio test strips) blood-glucose meter (TendrilTouch #1 ea 08/16/24 08/18/24 Rx Verio Flex Meter) ciprofloxacin HCl 500 mg tablet 500 mg PO BID #20 tabs 08/16/24 08/18/24 Rx lancets 33 gauge (OneTouch Deldiann #100 ea 08/16/24 08/18/24 Rx Plus Lancet) metformin 500 mg tablet,extended 500 mg PO DAILY #30 tabs 08/16/24 08/18/24 Rx release 24 hr metronidazole 500 mg tablet 500 mg PO TID #30 tabs 08/16/24 08/18/24 Rx Past Med/Surg History Problem List (Updated 08/15/24 @ 17:23 by Dia Hannon PA-C) Diabetes mellitus, new onset Abdominal pain (Acute) Diverticulitis (Acute) Sleep apnea Allergic rhinitis due to dust mite Allergic rhinitis due to animal dander Dietary counseling and surveillance Abnormal weight gain Obesity Vaginal dryness Osteoporosis Injury of posterior cruciate ligament of right knee Obesity (BMI 30-39.9) Fracture of tibial plateau, closed (Acute ~04/13/23) from a fall Bilateral plantar fasciitis Positive DANYEL (antinuclear antibody) Family history of osteoporosis Chronic sinusitis Allergic rhinitis IBS (irritable bowel syndrome) (Chronic) Ureteral calculi (Acute) Medical History Vitamin D deficiency 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 Vaginismus Hypokalemia Varicella Post-menopausal bleeding Endometriosis Surgical History S/P colonoscopy 03/2020 [facility], 3 yrs H/O lithotripsy S/P tonsillectomy History of hysteroscopy [id number] Endometrium S/P dilatation and curettage 08/28/2015 History of endometrial biopsy History of appendectomy Family History Uncle Hx of CABG Paternal Coronary heart disease Paternal Brother Diabetes Mother Hypertension Colorectal cancer Mother Malignant neoplasm of gastrointestinal tract Other Hyperlipidemia Migraine Prostate cancer Denies family history of Ovarian cancer Breast cancer Social History Smoking Status: Never smoker Second Hand Exposure: No; Do You Dip or Chew Tobacco: No; Hx Alcohol Use: No Hx Substance Use: No Preferred Language: Burmese Communication Ability: Effective Health And Safety Specialist Required: No Beliefs That Will Affect Care: None marital status: Current Living Situation: Spouse current occupational status: retired Feels Safe at Home: Yes Childhood Exposure to Second-Hand Smoke: No Diet Comment: restrictive diet caffeine: No Dental Care, Regularly: Yes Physical Activity Frequency: Daily Seatbelt Use: always Sunscreen Use: Yes Assistive Devices: None Review of Systems Review of Systems: All systems reviewed & are unremarkable except as noted in Subjective Physical Exam Physical Exam: General: No acute distress Skin: Warm and dry Head: Normocephalic, atraumatic Eyes: PERRL, conjunctivae clear, sclera non-icteric ENT: External ear and ear canal without swelling; nose atraumatic; good dentition, tongue normal appearance, pharynx normal Neck: Supple, no LAD Cardio: RRR, no M/G/R, S1 and S2 normal Resp: No respiratory distress, Lungs CTA in all lobes bilaterally, no wheezes, rales, or rhonchi Abdomen: Soft, symmetric, slightly tender throughout but mostly R quadrants, minimally distended; No guarding or peritoneal signs; No masses or hepatosplenomegaly; Bowel sounds normoactive MSK: No deformities; pulses palpable and equal; no edema. Neuro: Awake, alert; Sensation intact bilaterally; CN grossly intact Psych: Appropriate mood and affect; good judgement and insight. Male visitor present in room at time of visit. Results & Data Results & Data Vital Signs (Past 12 Hours) Vital Signs Temp Pulse Resp BP Pulse Ox O2 Del Method 08/14/24 23:40 70 08/14/24 23:00 Room Air 08/14/24 22:25 37.4 C 72 18 147/60 H 96 Room Air Laboratory Results 08/14/24 22:31 WBC 15.57 H RBC 4.32 Hgb 12.8 Hct 38.8 MCV 89.8 MCH 29.6 MCHC 33.0 RDW Std Deviation 39.7 RDW Coeff of [facility] 12.1 Plt Count 354 MPV 10.8 Immature Gran % (Auto) 0.4 Neut % (Auto) 71.5 Lymph % (Auto) 21.1 Edmunds % (Auto) 5.7 Eos % (Auto) 1.0 Baso % (Auto) 0.3 Neut # (Auto) 11.13 H Lymph # (Auto) 3.28 Edmunds # (Auto) 0.88 H Eos # (Auto) 0.16 Baso # (Auto) 0.05 Immature Gran # (Auto) 0.07 Sodium 135 L Potassium 4.4 Chloride 100 Carbon Dioxide 28 Anion Gap 7 BUN 11 Creatinine 0.75 Est Cr Clr Drug Dosing 103.9 eGFR 91.65 BUN/Creatinine Ratio 14.7 Glucose 259 H Calcium 9.2 Total Bilirubin 0.6 AST 16 ALT 15 Alkaline Phosphatase 130 H Troponin I High Sens 6.3 Total Protein 7.1 Albumin 4.0 Globulin 3.1 Albumin/Globulin Ratio 1.3 Lipase 33 Diagnostic Findings Abdomen/Pelvis CT 08/14/24 22:31 Exam(s): CT ABDOMEN + PELVIS With Contrast IV Amt: 93 ML OPTIRAY 320 EXAM: CT Abdomen and Pelvis With Intravenous Contrast CLINICAL HISTORY: Reason for exam: RUQ pain. TECHNIQUE: Axial computed tomography images of the abdomen and pelvis with intravenous contrast. CTDI is 27.73 mGy and DLP is 1374.21 mGy-cm. Automated exposure control was utilized for the study. A dose lowering technique was utilized adhering to the principles of ALARA. CONTRAST: Patient received 93 ML OPTIRAY 320 of IV contrast COMPARISON: 10/25/16 FINDINGS: Lung bases: Unremarkable. ABDOMEN: Liver: Unremarkable. No mass. Gallbladder and bile ducts: Unremarkable. No calcified stones. No ductal dilation. Pancreas: Unremarkable. No mass. No ductal dilation. Spleen: Unremarkable. No splenomegaly. Adrenals: Unremarkable. No mass. Kidneys and ureters: Unremarkable. No solid mass. No hydronephrosis. Stomach and bowel: Acute diverticulitis of the mid transverse colon. Prominent gas-filled diverticulum (coronal 17). Trace microperforation cannot be excluded. No abscess. No bowel obstruction. Diverticulosis. PELVIS: Appendix: No findings to suggest acute appendicitis. Bladder: Unremarkable. No mass. Reproductive: Unremarkable as visualized. ABDOMEN and PELVIS: Intraperitoneal space: Unremarkable. No free pneumoperitoneum. No abscess. No ascites. Bones/joints: No acute fracture. No dislocation. Soft tissues: Unremarkable. Vasculature: Unremarkable. No abdominal aortic aneurysm. Lymph nodes: Unremarkable. No enlarged lymph nodes. IMPRESSION: Acute diverticulitis of the mid transverse colon. Prominent gas-filled diverticulum (coronal 17). Trace microperforation cannot be excluded. No abscess. Electronically signed by: Dinesh David M.D. 08/15/24 00:11 AM Medications Administered 500 mL NSS Ondansetron 4 mg IV Morphine sulfate 4 mg IV Metronidazole 500 mg IV Cefoxitin 2 g IV ECG Additional Comments: Sinus rhythm with short KY, low voltage QRS 69 bpm, KY 110, QRS 82, QT/QTc 390/417, PRT 15/68/36 Code Status & VTE Plan Code Status Full Supervising Physician Co-Signing Physician Notes I personally saw and examined the patient. I independently reviewed the labs, EKG, imaging, problem list, medication list, past medical history and family history. I verified all daniel points and agree with Ervin Hankins PA-C with the following exceptions and/or additions: 58-year-old female presents to the ER with abdominal pain O/E HS RRR, no murmurs, Chest CTAB, Abdo suprapubic pain without guarding or rebound tenderness A/P Acute Diverticulitis - IV ceftriaxone + metronidazole, follow up colonoscopy in 6-8 weeks, NPO, IV fluids PG Care Time/CCT Total # of Minutes Spent Total Time Spent with Patient: Total time spent is greater than 50% in coordination of care (as documented) at patient's floor/unit and/or counseling patient: Coding Level of Care Code 68205 INT INP/OBS CARE MIN Diagnoses Diverticulitis K57.92
[2024-08-15] MEDS ORDERED: MoRPHine SULFATE 2 MG/ML CARP IV PRN (01:13)
[2024-08-15] MEDS ORDERED: MoRPHine SULFATE 4 MG/ML 1 ML CARP\\VIAL IV PRN (01:13)
[2024-08-15] MEDS ORDERED: NALOXONE HCL 0.4 MG/1 ML VIAL/CARP IV PRN (01:13)
[2024-08-15] MEDS: metroNIDAZOLE 500 MG/100 ML BAG IV STA (01:29)
[2024-08-15 01:48] LABS: Appearance Urine Clear (Clear); Bacteria Urine Automated None Seen (None Seen); Bilirubin Urine Negative (Negative); Blood Urine Negative (Negative); Cast Urine Automated 0-2 /lpf (0-2); Color Urine Yellow; Epithelial Cell Urine Auto 0-2 /hpf (0-2); Glucose Urine UA 1+ (Negative); Ketones Urine Negative (Negative); Leukocyte Esterase Urine Trace (Negative); Nitrite Urine Negative (Negative); Protein Urine Negative (Negative); RBC Urine Automated 0-2 /hpf (0-2); Specific Gravity Urine 1.007 (1.000-1.030); Urobilinogen Urine Negative (Negative); WBC Urine Automated 0-5 /hpf (0-5); pH Urine 6.5 (4.5-7.5)
[2024-08-15] MEDS ORDERED: ONDANSETRON INJ 2 MG/ML 2 ML VIAL IV PRN (02:21)
[2024-08-15] MEDS ORDERED: MAGNESIUM HYDROXIDE SUSP 30 ML UDC PO PRN (02:21)
[2024-08-15] MEDS ORDERED: MELATONIN 3 MG TAB PO PRN (02:21)
[2024-08-15] MEDS ORDERED: POLYETHYLENE (MIRALAX) 17 GM PACK PO PRN (02:21)
[2024-08-15] MEDS: cefTRIAXone SODIUM 2,000 MG/50 ML BAG IV SCH (03:03)
[2024-08-15] MEDS: LACTATED RINGER'S 1,000 ML IV SCH (03:08)
[2024-08-15] MEDS: ALUMINUM/MAGNESIUM SUSP 30 ML UDC PO PRN (03:08)
[2024-08-15 07:00] LABS: Hematocrit (blood only) 35.6 % (37.0-47.0); Mean Corpuscular Hemoglobin 30.2 pg (25.0-34.0); Mean Corpuscular Hgb Conc 33.7 g/dL (32.0-36.0); Mean Corpuscular Volume 89.4 fL (80.0-100.0); Mean Platelet Volume 10.4 fL (9.4-12.4); Platelet Count 330 K/uL (130-400); RDW Standard Deviation 39.9 fL (36.4-46.3); Red Blood Count 3.98 M/uL (4.20-5.40); White Blood Count 10.89 K/ul (4.8-10.8)
--- NOTE | 2024-08-15 07:14 | Electrocardiogram Report ---
Test Reason : Blood Pressure : */* mmHG Vent. Rate : 69 BPM Atrial Rate : 69 BPM P-R Int : 110 ms QRS Dur : 82 ms QT Int : 390 ms P-R-T Axes : 15 68 36 degrees QTcB Int : 417 ms Sinus rhythm Low voltage QRS Abnormal ECG When compared with ECG of 13-Apr-2023 23:58, No significant change was found Confirmed by Per Ascencio ([id number]) on 08/15/2024 7:13:55 AM Referred By: REFERRED SELF Confirmed By: Per Ascencio
[2024-08-15 07:31] LABS: BUN Creatinine Ratio 11.9 (10-20); Calcium 8.8 mg/dl (8.6-10.3); Creatinine Clr Calc Pharmacy 116.3 ml/min; Potassium 4.4 mmol/L (3.5-5.1)
[2024-08-15 07:43] LABS: Estimated Average Glucose 203 mg/dl; Hemoglobin A1C 8.7 % (4.5-5.6)
--- NOTE | 2024-08-15 11:50 | Hospitalist Progress Note ---
Date of Service August 15, 2024 Assessment & Plan (1) Diverticulitis: (2) Diabetes mellitus, new onset: Plan Patient is a 58 year old female with PMHx of IBS, Osteoporosis, Obesity, RAFAELA, Endometriosis, Vitamin D deficiency, Lactose Intolerance who presented to ED last night with severe abdominal pain, diarrhea, nausea without vomiting (08/14/24). ED evaluation significant for leukocytosis with WBC of 15.57, and blood glucose of 259, A1C was ordered. CT Abdomen/Pelvis with evidence of acute diverticulitis in the mid transverse colon and prominent gas-filled diverticulum, trace microperforation cannot be excluded, no abscess. Patient provided with 500 mL NSS, ondansetron 4 mg IV, morphine sulfate 4 mg IV, metronidazole 500 mg IV, and cefoxitin 2 g IV in ED. She was admitted to hospital medicine service where she was made NPO and given IV LR at 80mL/hour, PRN Zofran IV and Morphine IV, along with IV Ceftriaxone and IV Metronidazole were continued. Stool studies were ordered. General surgery consult not needed at time of admission. #Diverticulitis, acute Patient's symptoms have dramatically improved since admission-no abdominal pain, N/V/D. Will advance to clear liquid diet today and monitor Orders to advance to low fiber diet as tolerated are in place Continue IV Ceftriaxone and IV Metronidazole Continue IV Zofran and IV Morphine if needed #New onset Diabetes Mellitus was found to have BSG of 259 on admission A1C resulted today at 8.7 BSG ACHS with SSI coverage with novolog ordered - goal range 140-180 - correction factor 50 - carb ratio 25 g/unit Hypoglycemia PRN orders in place Monitor and adjust regimen as needed #Positive DANYEL/OP- Follows with rheumatology, stable; vitamin supplements for OP Dispo: Medsurg. Anticipate discharge tomorrow if tolerating diet with PO antibiotics for 10 days and outpatient follow up. VTE Prophylaxis: SCDs Admission and Anticipated Discharge Date Admission Date: August 15, 2024 Supervising Physician Co-Signing Physician Notes I personally saw and examined the patient. I independently reviewed the labs, imaging, problem list, medication list, past medical history. I verified all daniel points and agree with Dia Hannon PA-C with the following exceptions and/or additions: Abdominal pain significantly improved now 2/10. She has some chronic/recurrent RLQ pain from endometriosis and prior surgeries. Abd nontender on exam, +BT WBC 15-->11 Acute diverticulitis Continue antibiotics, advance diet Subjective Patient is a 58 year old female with PMHx of IBS, Osteoporosis, Obesity, RAFAELA, Endometriosis, Vitamin D deficiency, Lactose Intolerance who presented to ED last night with severe abdominal pain, diarrhea, nausea without vomiting (08/14/24). She underwent evaluation and was found to have acute diverticulitis. She was made NPO status and was treated with IVF with LR, Zofran PRN, Morphine PRN, along with IV Ceftriaxone and IV Metronidazole. General surgery not consulted. She was also found to have a blood glucose of 259, A1C was ordered. Currently, patient has been feeling much better, but remains fatigued. She reports that she experiences chronic abdominal pain that is mostly in RLQ/RUQ that is contributed to endometriosis, but that recent pain was diffuse across entire abdomen. She states that she is no longer experiencing diffuse pain and denies N/V/D. She is passing flatus. She denies fevers/chills. Her A1C result was 8.7. She was informed that this test is indicate of new onset Diabetes Mellitus. She denies history of this in the past. She has family history of diabetes in brother. She is following bariatrics currently for weight management. She has been following diet. Review of Systems Review of Systems: a 10 point review of systems has been obtained and is negative unless otherwise noted in HPI Physical Exam Physical Exam: General: No acute distress Skin: Warm and dry Head: Normocephalic, atraumatic Eyes: PERRL, conjunctivae clear, sclera non-icteric ENT: External ear and ear canal without swelling; nose atraumatic; good dentition, tongue normal appearance, pharynx normal Neck: Supple, no LAD Cardio: RRR, no M/G/R, S1 and S2 normal Resp: No respiratory distress, Lungs CTA in all lobes bilaterally, no wheezes, rales, or rhonchi Abdomen: Soft, symmetric, nontender to palpation in all 4 quadrants. No guarding/rebound; No masses or hepatosplenomegaly; Bowel sounds normoactive MSK: No deformities; pulses palpable and equal; no edema. Neuro: Awake, alert; Sensation intact bilaterally; CN grossly intact Psych: Appropriate mood and affect; good judgement and insight. Results & Data Results & Data Vital Signs (Past 12 Hours) Vital Signs Temperature, HR, RR, BP, O2, O2 delivery method Temp Pulse Pulse Resp BP BP Pulse Ox 08/15/24 07:23 98.1 F 96 H 18 107/72 98 08/15/24 02:30 98.1 F 64 18 127/83 99 08/15/24 02:21 98.1 F 64 18 127/83 99 08/15/24 01:43 08/15/24 01:30 64 21 118/69 93 08/15/24 00:33 69 20 95 08/15/24 00:30 118/58 L O2 Del Method 08/15/24 07:23 Room Air 08/15/24 02:30 Room Air 08/15/24 02:21 Room Air 08/15/24 01:43 Room Air 08/15/24 01:30 Room Air 08/15/24 00:33 Room Air 08/15/24 00:30 Laboratory Results CBC, BMP, Hemoglobin A1C, UA, Lactate, Blood glucose levels reviewed. Diagnostic Findings CT Abdomen/Pelvis reviewed PG Care Time/CCT Total # of Minutes Spent Total Time Spent with Patient: Total time spent is greater than 50% in coordination of care (as documented) at patient's floor/unit and/or counseling patient: Coding Level of Care Code 78617 SUB INP/OBS CARE 3/50MIN Diagnoses Diverticulitis K57.92 Diabetes mellitus, new onset E11.9
[2024-08-15] MEDS: metroNIDAZOLE 500 MG/100 ML BAG IV SCH (14:25)
[2024-08-15] MEDS ORDERED: GLUCOSE 40% GEL 15 GM TUBE PO PRN (17:00)
[2024-08-15] MEDS ORDERED: DEXTROSE 50% 50 ML SYRINGE IV PRN (17:00)
[2024-08-15] MEDS ORDERED: CARBOHYDRATES FOR HYPOGLYCEMIA PO PRN (17:00)
[2024-08-15] MEDS ORDERED: GLUCAGON FOR INJ 1 MG VIAL SQ PRN (17:00)
[2024-08-15] MEDS ORDERED: GLUCOSE 10 TAB/TUBE PO PRN (17:00)
[2024-08-15] MEDS: INSULIN ASPART PER UNIT CHARGE SC SCH (17:55)
[2024-08-16 07:19] VITALS: BP 101/61; PULSE 68; RESP 16; TEMP 98.2; O2SAT 95
[2024-08-16 08:19] LABS: Hematocrit (blood only) 37.7 % (37.0-47.0); Hemoglobin 12.6 g/dl (12.0-16.0); Mean Corpuscular Hemoglobin 30.2 pg (25.0-34.0); Mean Corpuscular Hgb Conc 33.4 g/dL (32.0-36.0); Mean Corpuscular Volume 90.4 fL (80.0-100.0); Mean Platelet Volume 10.3 fL (9.4-12.4); Platelet Count 365 K/uL (130-400); RDW Coefficient of Variation 11.9 % (11.5-14.5); RDW Standard Deviation 39.5 fL (36.4-46.3); Red Blood Count 4.17 M/uL (4.20-5.40); White Blood Count 8.44 K/ul (4.8-10.8)
[2024-08-16 08:38] LABS: BUN Creatinine Ratio 11.3 (10-20); Calcium 8.9 mg/dl (8.6-10.3); Creatinine Clr Calc Pharmacy 109.7 ml/min; Potassium 4.1 mmol/L (3.5-5.1)
[2024-08-16 11:27] LABS: iSTAT Blood Urea Nitrogen 10 mg/dl (7-18); iSTAT Carbon Dioxide 24 mmol/L (24-31); iSTAT Chloride 98 mmol/L (101-112); iSTAT Creatinine 0.7 mg/dl (0.6-1.3); iSTAT Hematocrit 36 % (37-47); iSTAT Hemoglobin 12.2 g/dl (12.0-16.0); iSTAT Ionized Calcium 1.19 mmol/l (1.12-1.32); iSTAT Potassium 4.5 mmol/L (3.3-5.0); iSTAT Sodium 136 mmol/L (135-144)
[2024-08-16] MEDS: PNEUMOCOCCAL VACCINE (PCV20) 20-VAL CONJ-DIP CRM/PF 0.5 ML SYR IM ONE (13:00)
--- NOTE | 2024-08-16 17:53 | Discharge Summary ---
Discharge Summary Date of Service August 16, 2024 Principal Dx & Hospital Course #1 = Principal Diagnosis (1) Diverticulitis: (2) Diabetes mellitus, new onset: Plan 58-year-old woman admitted with acute diverticulitis of the transverse colon. on CT there was a large gas-filled diverticulum, microperforation could not be excluded, however there was no abscess she improved and her pain resolved with bowel rest and IV antibiotics. By the time of discharge she was tolerating a low fiber diet well without any pain or nausea medications. In the hospital she was treated with IV ceftriaxone and metronidazole, which was changed to ciprofloxacin and metronidazole upon discharge for 10 days. I used ciprofloxacin because she reports an allergy to penicillin new diagnosis of diabetes mellitus type 2 with A1c of 8.7, correlates to average blood glucose around 205. Glucose checks in the hospital were all less than 180 and no insulin was needed. She met with the dietitian and unit educator. Discharged with prescription for metformin XR 500 mg daily. I instructed her to hold off on taking this for at least several days to a week so that it does not aggravate her bowel symptoms, warned about possible possible s adan effects of bloating and diarrhea. gave prescription for glucometer and supplies at discharge. she will follow-up with primary care, [facility] diabetes coordinator was notified morbid obesity BMI of 38she has arranged an outpatient visit with a puffer tender which is coming up, she tries to increase her activity level, she has a limited diet because of long-term IBS and lactose intolerance symptoms so diet modification has been difficult. Consider GLP-1 agonist as a treatment option for her diabetes and obesity she was seen in our endocrinology clinic in May, however, the visit was to evaluate an elevated cortisol level and [place]'s was ruled out. Notes For Next Care Provider new diagnosis of diabetes type 2 acute diverticulitis of transverse colon, discharged with 10 days of oral antibiotics. seems to have chronic right lower quadrant discomfort, CT reimaging indicated in a few weeks if diverticulitis symptoms not resolved Medication Changes From Visit started metformin XR 500 mg daily has penicillin allergy so antibiotics for discharge are ciprofloxacin and metronidazole Admission HPI Per Admitting Provider 58-year-old female PMHx of being positive DANYEL and osteoporosis presenting via EMS for acute onset of severe abdominal pain the night PRODUCT MANAGEMENT INTERN. States that "earlier this week" she was started on antibiotics for a sinus infection, as well as prednisone (fill history shows Cefdinir). On the Friday PRODUCT MANAGEMENT INTERN (08/10/2024) reports that she had significant abdominal cramping, and she discontinued her antibiotics after having "horrible" diarrhea. Reports some worsening abdominal pain since that time, reaching its worst the night PRODUCT MANAGEMENT INTERN. She describes the pain at its worst a 10/10 on the pain scale, describing it as tense and "everywhere". Admits to some nausea as well, without vomiting. She was able to have a BM that helps to alleviate some of the pain very minimally but the pain was persistent. She is experiencing some SOB when her "stomach feels full of gas". Does admit to feeling feverish and "woozy" the day PRODUCT MANAGEMENT INTERN, as well as generalized fatigue. States that her current pain is around a 4/10 on the pain scale following administration of pain meds, and that she feels some relief of the pain when she passes gas. Overall, denies chest pain, current SOB, palpitations, constipation, numbness/tingling, current URI symptoms, chills, or weakness. States that she has never had this happen before. Did take IBU to try to help with the pain, minimal relief. ED evaluation reveals leukocytosis 15.57, stable H&H of 12.8/38.8; CMP sodium 135, glucose 259, alk phos 130; lipase 33; troponin 6.3; CTAP evidence of acute diverticulitis in the mid transverse colon and prominent gas-filled diverticulum, trace microperforation cannot be excluded, no abscess; EKG sinus rhythm with a short WI interval at 69 bpm.; Patient provided with 500 mL NSS, ondansetron 4 mg IV, morphine sulfate 4 mg IV, metronidazole 500 mg IV, and cefoxitin 2 g IV in ED. Please see Dr. Gomez's attestation for adjustments/additions to treatment plan. Discharge Exam PHYSICAL EXAMINATION Last 24h vital signs reviewed, see documentation in flowsheet General: comfortable appearing, no distress HEENT: Normocephalic, atraumatic, pupils round and equal, sclerae anicteric, no conjunctival injection, moist mucus membranes Lungs: Normal respiratory effort. Clear to auscultation bilaterally. No RRW Heart: Regular rate and rhythm, no murmurs. No JVD Abdomen: Soft, nontender, nondistended. Bowel sounds present. Extremities: Warm, dry, well-perfused. No extremity edema. Neuro: Alert and oriented x 4, face symmetric, moves 4 extremities well Psych: Normal affect and behavior Discharge Plan Discharge Items Patient Disposition: Home - Self-Care Reason For Visit: DIVERTICULITIS Discharge Diagnosis: Acute diverticulitis, new diagnosis of diabetes type 2 Activity: Resume your previous activity Non-emergency contact: Primary Care Provider Call non-emergency contact if: you have any medication questions, your pain is worsening and you have a fever Follow-up/Referrals: Catie Mccloud MD [Primary Care Provider] - 08/24/24 2:00 pm Diet: Carb Consistent or DM2 and Low Fiber Addtl Attending Provider Instructions: You were treated for acute diverticulitis - inflammation/infection of a diverticulum in the wall of your colon -finish the course of antibiotics -pain and GI discomfort should be slowly improving over next days/weeks -you can take a probiotic daily to prevent antibiotic associated diarrhea -follow a low fiber diet for 1-2 weeks until your bowels seem back to normal for you, then start reintroducing normal foods -follow up with your data coder operator for a colonoscopy - you may want to call and ask if they can move it up. It should be safe to do 4-6 weeks from now You were diagnosed with type 2 diabetes -your A1c was 8.7% which means your average blood sugar has been around 205 -we will start with a medication called metformin - sometimes this medicine causes gas or diarrhea so its probably better to wait several days to a week before starting it -avoid sugary drinks - these really spike your blood sugar -low fiber diets tend to have a lot of simple carbs, but more shelter its healthy to focus on vegetables, whole grains, and lean meats. Mediterranean diet is a good example. -the diabetes coordinator with [facility] will be giving you a call to set up some follow up -follow up with your primary care doctor within 1-2 weeks It was a pleasure taking care of you in the hospital, Millie Corona MD Pending Studies at Discharge: No Stand-Alone Forms: My [employer], Smoking Cessation Medications and DC Order Prescriptions: New ciprofloxacin HCl 500 mg tablet 500 mg PO BID Qty: 20 0RF metronidazole 500 mg tablet 500 mg PO TID Qty: 30 0RF metformin 500 mg tablet extended release 24 hr 500 mg PO DAILY Qty: 30 0RF (DME) blood-glucose meter [OneTouch Verio Flex meter] Misc See Rx Instructions .Route Qty: 1 0RF Rx Instructions: As directed (DME) OneTouch Verio test strips Strip See Rx Instructions .Route Qty: 30 3RF Rx Instructions: Check blood sugar once a day (DME) lancets [OneTouch Delica Plus Lancet] 33 gauge misc See Rx Instructions .Route Qty: 100 3RF Rx Instructions: Check blood sugar once a day Continued estradiol [Yuvafem] 10 mcg tablet 10 mcg vaginal .COMPLEX Qty: 24 3RF Rx Instructions: 10 mcg vaginally 2x/wk; cholecalciferol (vitamin D3) 2,000 unit tablet 50 mcg PO DAILY biotin 10 mg tablet 10 mg PO DAILY ferrous gluconate 240 mg (27 mg iron) tablet 240 mg PO DAILY cyanocobalamin (vitamin B-12) 500 mcg tablet 500 mcg PO DAILY vitamin A 8,000 unit capsule 2,400 mcg PO DAILY vitamin B complex capsule 1 cap PO DAILY multivitamin [Multiple Vitamins] Tablet 1 tab PO DAILY cyclobenzaprine 5 mg tablet 5 mg PO DAILY PRN (Reason: MUSCLE SPASMS) xlcbotg-jjagtta-nmbeeug-terbin 4-2-1-4 % solution 0 ml topical DIRECTED PRN (Reason: NEEDED PER PT) Caltrate 600 plus D 600 mg-20 mcg (800 unit) Tablet,Chewable 1 tab PO DAILY Discharge Orders: Discharge Order (Routine); Ordered 08/16/24 Ordered By: Millie Wei/Other Patient Handouts: Diverticulitis Dc Admission Data Admit Date/Time: 08/15/24 01:04 Attending Provider: Millie Corona Admit Provider: Anjel Gomez Primary Care Provider: Catie Mccloud Other Providers: Anjel Gomez Other Interventions: Discharge Summary Assessment (RN) Last Done: 08/16/24 13:06 Hospital Stay Data Consultations 08/15/24 00:32 ED Decision to Admit Stat Diagnostic Imagining Performed 08/14/24 22:31 CT abd pelvis IV con only Stat Pending Results Patient Have Any Pending Studies at Discharge: No Discharge Instructions Given to Patient (Per Discharging Provider) You were treated for acute diverticulitis - inflammation/infection of a diverti culum in the wall of your colon -finish the course of antibiotics -pain and GI discomfort should be slowly improving over next days/weeks -you can take a probiotic daily to prevent antibiotic associated diarrhea -follow a low fiber diet for 1-2 weeks until your bowels seem back to normal for you, then start reintroducing normal foods -follow up with your data coder operator for a colonoscopy - you may want to call and ask if they can move it up. It should be safe to do 4-6 weeks from now You were diagnosed with type 2 diabetes -your A1c was 8.7% which means your average blood sugar has been around 205 -we will start with a medication called metformin - sometimes this medicine causes gas or diarrhea so its probably better to wait several days to a week before starting it -avoid sugary drinks - these really spike your blood sugar -low fiber diets tend to have a lot of simple carbs, but more shelter its healthy to focus on vegetables, whole grains, and lean meats. Mediterranean diet is a good example. -the diabetes coordinator with [facility] will be giving you a call to set up some follow up -follow up with your primary care doctor within 1-2 weeks It was a pleasure taking care of you in the hospital, Millie Corona MD Total Time Total Time Spent Total Time Spent (In Minutes): I personally spent: 40 minutes today on clinical care activities including: reviewing chart notes and vital signs reviewing labs discussion with care consultant(s) - puffer tender, unit educator discussion with care technician examining and counseling the patient writing orders writing prescriptions, discharge instructions documentation Coding Level of Care Code 99333 INP/OBS DISCH >30 MIN Diagnoses Diverticulitis K57.92 Diabetes mellitus, new onset E11.9
== END 2024-08-16 14:49 | disposition home or self-care (01) ==
LOC: ED 22:17 → INTOOBSV 08-15 01:04 → SUATTDRO 08-15 01:04 → 3W 08-15 01:04
DX: Z88.0 Allergy status to penicillin; E11.9 Type 2 diabetes mellitus without complications; R76.0 Raised antibody titer; K57.92 Diverticulitis of intestine, part unspecified, without perforation or abscess without bleeding; Z88.5 Allergy status to narcotic agent; R73.9 Hyperglycemia, unspecified; Z91.011 Allergy to milk products; Z91.018 Allergy to other foods; Z91.012 Allergy to eggs; Z79.899 Other long term (current) drug therapy; Z91.048 Other nonmedicinal substance allergy status